=== PATIENT | female | born 1950 | race Caucasian/White ===

== ENCOUNTER 2016-06-06 18:01 | Emergency (ER) | payer MEDICARE, BC ==
--- NOTE | 2016-06-06 18:35 | EDM.PDOC ---
ED HPI GENERAL MEDICAL PROBLEM - General Chief Complaint: General Stated Complaint: Altered mental status Time Seen by Provider: 06/06/16 18:06 Source of Information: Reports: Other ([facility] RN) History Limitations: Reports: Altered mental status (per those familiar with patient) - History of Present Illness INITIAL COMMENTS - FREE TEXT/NARRATIVE: Patient sent here for evaluation after [facility] staff noticed that she had change in level of activity, wasn't acting like usual self, seemed to be slurring words. No focal weakness noted. No fevers or other signs of obvious illness. Recent surgery for right tib/fib fracture. Is at [facility] for rehab. The changes were noted earlier today. It was thought that it was possible side effect of Tramadol and this was medication was then held. No improvement noted. Patient is awake and conversive upon arrival. No obvious focal weakness/ asymmetry. She feels that she is more tired today and has some nausea. Otherwise she has no complaints. Patient could not recall that she was in [place]. She thought she was in [place]. She also thought today was Saturday ( It is Saturday) and she could not recall the month. She denies any increased pain in the area of the right leg that was fractured. She denies any new areas of pain. Said that she had large BM today after having constipation issues. We were told by [facility] staff that patient had not had BM for six days. No emesis. Patient did not appear confused otherwise or inappropriate. - Related Data Allergies Allergy/AdvReac Type Severity Reaction Status Date / Time gluten Allergy Hives Verified 06/06/16 18:39 Penicillins Allergy Hives Verified 06/06/16 18:39 ED ROS GENERAL - Review of Systems Review Of Systems: See Below Constitutional: Reports: no symptoms HEENT: Reports: No symptoms Respiratory: Reports: no symptoms Cardiovascular: Reports: No symptoms GI/Abdominal: Reports: Constipation, Nausea. Denies: Hematemesis, Hematochezia , Vomiting : Reports: no symptoms, other (has had recent UTI per patient) Musculoskeletal: Reports: leg pain (right tib/fib fracture recently. 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 Nothing has improved them over the years. ) Neurological: Reports: confusion, change in speech. Denies: dizziness, headache , numbness, paresthesia, seizure, syncope, tingling, tremors, trouble speaking, weakness Psychiatric: Reports: No symptoms ED EXAM, GENERAL - Physical Exam Exam: See Below Exam Limited By: Other (has limitations in mobility due to the recent leg surgery. Right leg in immobilizer.) General Appearance: alert, no apparent distress Eye Exam: bilateral eye: EOMI, normal inspection, PERRL Ears: normal canal, hearing grossly normal, normal TMs, other (both ears have a small sore, similar in appearance to the sores on her body that have been present for years) Nose: normal inspection Throat/Mouth: Other (Dry lips. Very poor dentition and gum disease. Tongue midline. ) Head: atraumatic, normocephalic, other (Facies symmetric) Neck: normal inspection, supple, non-tender, full range of motion Respiratory/Chest: no respiratory distress, no accessory muscle use, chest non- tender, crackles (faint crackes bases). No: rhonchi, wheezing, stridor Cardiovascular: regular rate, rhythm, no murmur Peripheral Pulses: 2+: radial (L), radial (R) GI/Abdominal: normal bowel sounds, soft, non tender, no distention Back Exam: No: CVA tenderness (L), CVA tenderness (R), muscle spasm, paraspinal tenderness, vertebral tenderness Extremities: other (No obvious edema noted. RIght leg in imobilizer. ) Neurological: alert, CN II-XII intact, normal reflexes, no motor/sensory deficits, other (Patient cannot remember town where she is, nor day/month) Psychiatric: normal affect, normal mood Skin Exam: Warm, Dry, Other (paler skin color. Dark circles around eyes. ) Course - Vital Signs Last Recorded V/S: Last Vital Signs Temp 37.0 C 06/06/16 19:00 Pulse 58 L 06/06/16 19:27 Resp 15 06/06/16 19:27 BP 137/43 L 06/06/16 19:27 Pulse Ox 100 06/06/16 19:27 - Orders/Labs/Meds Orders: Active Orders 24 hr Category Date Time Status Chest 1V Frontal [CR] Stat Exams 06/06/16 18:07 Ordered Head wo Cont [CT] Stat Exams 06/06/16 18:08 Ordered UA W/MICROSCOPIC [URIN] Stat Lab 06/06/16 18:07 Uncollected Labs: Laboratory Tests 06/06/16 06/06/16 06/06/16 Range/Units 18:14 18:14 18:14 WBC 9.3 (4.0-10.2) K/uL RBC 3.37 L (3.77-5.09) M/uL Hgb 8.9 L (11.7-15.5) g/dL Hct 27.6 L (34.0-46.0) % MCV 81.9 L (84.0-98.0) fL MCH 26.4 L (28.2-33.3) pg MCHC 32.2 (31.7-36.0) g/dL RDW 13.0 (11.2-14.1) % Plt Count 536 H (150-350) K/uL Neut % (Auto) 85.9 H (45.0-80.0) % Lymph % (Auto) 7.5 L (10.0-50.0) % [place] % (Auto) 6.0 (2.0-14.0) % Eos % (Auto) 0.2 (0.0-5.0) % Baso % (Auto) 0.4 (0.0-2.0) % Neut # 7.97 H (1.40-7.00) K/uL Lymph # 0.70 (0.50-3.50) K/uL [place] # 0.56 (0.00-1.00) K/uL Eos # 0.02 (0.00-0.50) K/uL Baso # 0.04 (0.00-0.20) K/uL Sodium 125 L (136-145) mmol/L Potassium 4.7 (3.5-5.1) mmol/L Chloride 88 L (98-107) mmol/L Carbon Dioxide 32.7 H (21.0-32.0) mmol/L BUN 24 H (7-18) mg/dL Creatinine 1.19 H (0.51-1.17) mg/dL Est Cr Clr Drug Dosing 49.25 mL/min Estimated GFR (MDRD) 46 mL/min Glucose 251 H* (74-106) mg/dL Lactic Acid 0.7 (0.4-2.0) mmol/L Calcium 8.7 (8.5-10.1) mg/dL Total Bilirubin 0.6 (0.2-1.0) mg/dL AST 22 (15-37) U/L ALT 21 (12-78) U/L Alkaline Phosphatase 172 H (46-116) IU/L Ammonia (11-32) umol/L Troponin I 0.001 (0.000-0.056) ng/mL Total Protein 7.0 (6.4-8.2) g/dL Albumin 3.1 L (3.4-5.0) g/dL 06/06/16 Range/Units 18:14 WBC (4.0-10.2) K/uL RBC (3.77-5.09) M/uL Hgb (11.7-15.5) g/dL Hct (34.0-46.0) % MCV (84.0-98.0) fL MCH (28.2-33.3) pg MCHC (31.7-36.0) g/dL RDW (11.2-14.1) % Plt Count (150-350) K/uL Neut % (Auto) (45.0-80.0) % Lymph % (Auto) (10.0-50.0) % [place] % (Auto) (2.0-14.0) % Eos % (Auto) (0.0-5.0) % Baso % (Auto) (0.0-2.0) % Neut # (1.40-7.00) K/uL Lymph # (0.50-3.50) K/uL [place] # (0.00-1.00) K/uL Eos # (0.00-0.50) K/uL Baso # (0.00-0.20) K/uL Sodium (136-145) mmol/L Potassium (3.5-5.1) mmol/L Chloride (98-107) mmol/L Carbon Dioxide (21.0-32.0) mmol/L BUN (7-18) mg/dL Creatinine (0.51-1.17) mg/dL Est Cr Clr Drug Dosing mL/min Estimated GFR (MDRD) mL/min Glucose (74-106) mg/dL Lactic Acid (0.4-2.0) mmol/L Calcium (8.5-10.1) mg/dL Total Bilirubin (0.2-1.0) mg/dL AST (15-37) U/L ALT (12-78) U/L Alkaline Phosphatase (46-116) IU/L Ammonia 28 (11-32) umol/L Troponin I (0.000-0.056) ng/mL Total Protein (6.4-8.2) g/dL Albumin (3.4-5.0) g/dL Meds: Medications Discontinued Medications Generic Name Dose Route Start Last Admin Trade Name Freq PRN Reason Stop Dose Admin Sodium Chloride 1,000 mls @ 999 mls/hr 06/06/16 18:52 06/06/16 18:57 Normal Saline IV 06/06/16 19:52 999 mls/hr .BOLUS ONE Administration Insulin Human Regular 6 unit 06/07/16 18:58 Humulin R SUBCUT 06/07/16 18:59 ONETIME ONE Protocol Insulin Human Regular 6 unit 06/07/16 20:03 Humulin R SUBCUT 06/07/16 20:04 ONETIME ONE Protocol Ondansetron HCl 4 mg 06/06/16 19:24 06/06/16 20:03 Zofran IVPUSH 06/06/16 19:25 4 mg ONETIME ONE Administration - Radiology Interpretation Free Text/Narrative:: Chest film shows patchy changes right lower lung. Cannot exclude infiltrate. - Re-Assessments/Exams Free Text/Narrative Re-Assessment/Exam: 06/06/16 19:09 Electrolyte imbalance identified. Na of 125. Platelets also concentrated. Suspect dehydration. Patient admits to poor PO fluid intake. IV fluid bolus ordered. CT results still pending at this time. Do not suspect CVA/TIA at this time. Free Text/Narrative Re-Assessment/Exam: 06/06/16 20:00 CT of head showed several concerns. No obvious acute bleed. However 6mm hyperdense area around pituitary noted by Radiology. Differential includes aneurysm as well as tumor. Radiology recommended MRA/MRI. Also noted to have slightly larger ventricles which may indicate mild hydrocephalus. [facility] in [place] was contacted. , Hospitalist, accepted patient in transfer for continued workup. Patient's blood sugar elevated in mid-200s. She declined having us give her insulin in the ER saying that she is extremely brittle and easily crashes and becomes hypoglycemic. Insulin order canceled. Patient transferred by ambulance to [facility]. Stable throughout entire stay in ER. Patient afebrile. Normal WBC. No respiratory complaints. No antibiotics initiated during stay in ER. Free Text/Narrative Re-Assessment/Exam: 06/06/16 20:10 Unable to obtain UA for analysis prior to transfer. Departure - Departure Time of Disposition: 20:09 Disposition: DC/Tfer to [facility] 02 Condition: good Clinical Impression: Hyperglycemia, Hyponatremia, Abnormal CT of brain Forms: ED Department Discharge - My Orders Last 24 Hours: My Active Orders 06/06/16 18:07 Chest 1V Frontal [CR] Stat UA W/MICROSCOPIC [URIN] Stat 06/06/16 18:08 Head wo Cont [CT] Stat - Assessment/Plan Last 24 Hours: My Active Orders 06/06/16 18:07 Chest 1V Frontal [CR] Stat UA W/MICROSCOPIC [URIN] Stat 06/06/16 18:08 Head wo Cont [CT] Stat
[2016-06-06] MEDS ORDERED: Sodium Chloride 0.9% 1,000 ML IV ONE (18:52)
[2016-06-06] MEDS ORDERED: Ondansetron 4 MG/2 ML SDV IVPUSH ONE (19:24)
[2016-06-07 03:27] VITALS: BP 139/41
[2016-06-07] MEDS ORDERED: Insulin Regular, Human 100 Units/ML 3 ML Vial SUBCUT ONE ×2 (18:58→20:03)
== END 2016-06-06 21:10 ==
LOC: LL.ED 18:01
DX: R73.9 Hyperglycemia, unspecified (principal); E87.1 Hypo-osmolality and hyponatremia; R93.0 Abnormal findings on diagnostic imaging of skull and head, not elsewhere classified; Z88.0 Allergy status to penicillin
CPT/HCPCS: 36415; 70450; 71010; 80053; 82140; 83605; 84484; 85025; 96361; 96374; 99285; J2405; J7030; 99284

== ENCOUNTER 2016-06-18 21:09 | Inpatient (IN) | payer MEDICARE, BC ==
[2016-06-18] MEDS ORDERED: Sodium Chloride 0.9% 1,000 ML IV ONE (21:56)
--- NOTE | 2016-06-18 22:16 | EDM.PDOC ---
ED HPI GENERAL MEDICAL PROBLEM - General Chief Complaint: General Stated Complaint: fever Time Seen by Provider: 06/18/16 21:15 Source of Information: Reports: Patient, assisted records History Limitations: Reports: No limitations - History of Present Illness INITIAL COMMENTS - FREE TEXT/NARRATIVE: Feeling sick today. Noted to have a 100.3 fever at [place]. Mild cough. No specific c/o Onset: today Location: Reports: generalized Quality: Reports: Other (no specific pain) Improves with: Reports: None Worsens with: Reports: None Associated Symptoms: Reports: cough, fever/chills (by report of NH), malaise. Denies: chest pain, cough w sputum, diaphoresis, nausea/vomiting, rash, shortness of breath Right Leg Pain Score (Numeric/FACES): 3 - Related Data Allergies Allergy/AdvReac Type Severity Reaction Status Date / Time gluten Allergy Hives Verified 06/06/16 18:39 Penicillins Allergy Hives Verified 06/18/16 21:16 Home Meds: Home Meds Acetaminophen [Tylenol] 650 mg PO Q4HR PRN 06/07/16 [History] Amiodarone HCl [Pacerone] 200 mg PO DAILY 06/07/16 [History] Aspirin [Halfprin] 81 mg PO BRK 06/07/16 [History] Bisacodyl 10 mg RC DAILY PRN 06/07/16 [History] Calcium Carbonate/Vitamin D3 [Calcium 600 + Vit D 400 Softgl] 1 tab PO BID 06/07 [History] Carboxymethylcellulose Sodium [Refresh Tears] 1 drop EYEBOTH Q6HR PRN 06/07/16 [ History] DULoxetine HCl [Cymbalta] 60 mg PO BEDTIME 06/07/16 [History] Gabapentin [Neurontin] 300 mg PO BEDTIME 06/07/16 [History] Hydrochlorothiazide 12.5 mg PO DAILY 06/07/16 [History] Insulin Aspart [NovoLOG] 4 units SQ TIDAC 06/07/16 [History] Insulin Glarg,Human.Rec.Analog [Lantus] 8 units SQ BID 06/07/16 [History] Lactulose 30 ml PO Q8HR PRN 06/07/16 [History] Levothyroxine Sodium [Levoxyl] 50 mcg PO DAILY 06/07/16 [History] Liothyronine Sodium 1 tab PO DAILY 06/07/16 [History] Losartan Potassium 2 tab PO DAILY 06/07/16 [History] Melatonin 3 mg PO BEDTIME 06/07/16 [History] Metoprolol Tartrate 12.5 mg PO BID 06/07/16 [History] Multivit-Min/Iron Fum/Folic AC [Adeus-Cyfqdqk-Clrjpzip Tablet] 1 tab PO DAILY [History] Nitroglycerin [Nitrostat] 1 tab SL ASDIRECTED PRN 06/07/16 [History] Non-Formulary Medication [NF Drug] 50 mg PO DAILY 06/07/16 [History] Progesterone,Micronized [Prometrium] 3 cap PO BEDTIME 06/07/16 [History] Sennosides/Docusate Sodium [Senna S Tablet] 2 tab PO BID 06/07/16 [History] Sodium Chloride [Saline Nasal [place]] 2 spray DARNELL BEDTIME 06/07/16 [History] atorvaSTATin Calcium [Atorvastatin Calcium] 10 mg PO QPM 06/07/16 [History] Social & Family History - Family History Family Medical History: Noncontributory - Tobacco Use Smoking Status *Q: Never Smoker Second Hand Smoke Exposure: No - Caffeine Use Caffeine Use: Reports: None - Recreational Drug Use Recreational Drug Use: No ED ROS GENERAL - Review of Systems Review Of Systems: See Below Constitutional: Reports: fever, malaise. Denies: chills, diaphoresis HEENT: Reports: No symptoms Respiratory: Reports: No Symptoms Cardiovascular: Reports: No symptoms Endocrine: Reports: no symptoms GI/Abdominal: Reports: No symptoms : Reports: no symptoms Musculoskeletal: Reports: no symptoms, other (except right leg pain since recent fracture) Skin: Reports: no symptoms Neurological: Reports: No Symptoms Psychiatric: Reports: No symptoms Hematologic/Lymphatic: Reports: no symptoms Immunologic: Reports: no symptoms ED EXAM, GENERAL - Physical Exam Exam: See Below Exam Limited By: No limitations General Appearance: alert, WD/WN, no apparent distress Eye Exam: bilateral eye: EOMI, PERRL Ears: normal external exam, normal canal, hearing grossly normal, normal TMs Nose: normal inspection, normal mucosa, no blood Throat/Mouth: Normal inspection, Normal oropharynx, No airway compromise, Other (gum hypertrophy) Head: atraumatic, normocephalic Neck: normal inspection, supple, non-tender, full range of motion, other ( fullness of right sternomastoid muscle). No: lymphadenopathy (L), lymphadenopathy (R) Respiratory/Chest: no respiratory distress, lungs clear, normal breath sounds, no accessory muscle use Cardiovascular: regular rate, rhythm, no murmur GI/Abdominal: normal bowel sounds, soft, non tender, no organomegaly, no distention Back Exam: normal inspection, full range of motion Extremities: normal inspection, normal range of motion, non-tender, no pedal edema, normal capillary refill Neurological: alert, oriented, CN II-XII intact, normal gait, no motor/sensory deficits, other (questionable memory) Psychiatric: normal affect, normal mood Skin Exam: Warm, Dry, Intact, No rash, Pallor Lymphatic: no adenopathy Course - Vital Signs Last Recorded V/S: Last Vital Signs Temp 38.1 C 06/18/16 21:10 Pulse 74 06/18/16 21:10 Resp 18 06/18/16 21:10 BP 108/40 L 06/18/16 21:10 Pulse Ox 98 06/18/16 21:10 - Orders/Labs/Meds Orders: Active Orders 24 hr Category Date Time Status Chest 1V Frontal [CR] Stat Exams 06/18/16 21:56 Taken UA W/MICROSCOPIC [URIN] Stat Lab 06/18/16 21:56 Ordered Levofloxacin/Dextrose 5%-Water [Levaquin in D5W 500 MG/ Med 06/18/16 23:15 Ordered 100 ML] 500 mg Premix Bag 1 bag IV Q24H Sodium Chloride 0.9% [Normal Saline] 1,000 ml Med 06/18/16 21:56 Active IV .BOLUS Medication Orders Sodium Chloride (Normal Saline) 1,000 mls @ 500 mls/hr IV .BOLUS ONE Stop: 06/18/16 23:55 Last Admin: 06/18/16 22:50 Dose: 500 mls/hr Labs: Laboratory Tests 06/18/16 06/18/16 Range/Units 22:10 22:10 WBC 15.0 H (4.0-10.2) K/uL RBC 2.93 L (3.77-5.09) M/uL Hgb 7.7 L (11.7-15.5) g/dL Hct 24.4 L* (34.0-46.0) % MCV 83.3 L (84.0-98.0) fL MCH 26.3 L (28.2-33.3) pg MCHC 31.6 L (31.7-36.0) g/dL RDW 13.8 (11.2-14.1) % Plt Count 417 H D (150-350) K/uL Neut % (Auto) 88.5 H (45.0-80.0) % Lymph % (Auto) 5.4 L (10.0-50.0) % [place] % (Auto) 2.7 (2.0-14.0) % Eos % (Auto) 2.7 (0.0-5.0) % Baso % (Auto) 0.7 (0.0-2.0) % Neut # 13.30 H (1.40-7.00) K/uL Lymph # 0.81 (0.50-3.50) K/uL [place] # 0.41 (0.00-1.00) K/uL Eos # 0.40 (0.00-0.50) K/uL Baso # 0.11 (0.00-0.20) K/uL Sodium 128 L (136-145) mmol/L Potassium 4.8 (3.5-5.1) mmol/L Chloride 93 L (98-107) mmol/L Carbon Dioxide 27.7 (21.0-32.0) mmol/L BUN 36 H (7-18) mg/dL Creatinine 1.28 H (0.51-1.17) mg/dL Est Cr Clr Drug Dosing 45.15 mL/min Estimated GFR (MDRD) 42 mL/min Glucose 243 H (74-106) mg/dL Calcium 8.4 L (8.5-10.1) mg/dL Total Bilirubin 0.5 (0.2-1.0) mg/dL AST 155 H (15-37) U/L ALT 110 H (12-78) U/L Alkaline Phosphatase 211 H (46-116) IU/L Total Protein 6.6 (6.4-8.2) g/dL Albumin 2.9 L (3.4-5.0) g/dL Meds: Medications Generic Name Dose Route Start Last Admin Trade Name Freq PRN Reason Stop Dose Admin Sodium Chloride 1,000 mls @ 500 mls/hr 06/18/16 21:56 06/18/16 22:50 Normal Saline IV 06/18/16 23:55 500 mls/hr .BOLUS ONE Administration Departure - Departure Time of Disposition: 23:06 Disposition: Admitted As Inpatient 66 Condition: fair Clinical Impression: UTI (urinary tract infection) Qualifiers: Urinary tract infection type: acute cystitis Hematuria presence: without hematuria Qualified Code(s): N30.00 - Acute cystitis without hematuria Altered mental status Qualifiers: Altered mental status type: unspecified Qualified Code(s): R41.82 - Altered mental status, unspecified Forms: ED Department Discharge - My Orders Last 24 Hours: My Active Orders 06/18/16 21:56 Chest 1V Frontal [CR] Stat UA W/MICROSCOPIC [URIN] Stat Sodium Chloride 0.9% [Normal Saline] 1,000 ml IV .BOLUS 06/18/16 23:15 Levofloxacin/Dextrose 5%-Water [Levaquin in D5W 500 MG/100 ML] 500 mg Premix Bag 1 bag IV Q24H - Assessment/Plan Last 24 Hours: My Active Orders 06/18/16 21:56 Chest 1V Frontal [CR] Stat UA W/MICROSCOPIC [URIN] Stat Sodium Chloride 0.9% [Normal Saline] 1,000 ml IV .BOLUS 06/18/16 23:15 Levofloxacin/Dextrose 5%-Water [Levaquin in D5W 500 MG/100 ML] 500 mg Premix Bag 1 bag IV Q24H
[2016-06-19] MEDS ORDERED: Acetaminophen 325 MG Tab PO PRN (00:08)
[2016-06-19] MEDS ORDERED: Polyvinyl Alcohol 1.4% Ophth Soln 15 ML Bottle EYEBOTH PRN (00:08)
[2016-06-19] MEDS: Levofloxacin/Dextrose 5%-Water 500 MG in Premix Bag 1 BAG IV SCH ×2 (00:59→22:17)
[2016-06-19] MEDS: Sodium Chloride 0.9% 1,000 ML IV SCH ×2 (02:09→22:16)
[2016-06-19] MEDS ORDERED: Calcium Carbonate/Vitamin D3 625 MG-125 Unit Tab PO SCH (08:00)
[2016-06-19] MEDS ORDERED: Nitroglycerin 0.4 MG Tab.SL SL PRN (09:27)
[2016-06-19] MEDS ORDERED: Bisacodyl 10 MG Supp RECTAL PRN (09:27)
[2016-06-19] MEDS ORDERED: Cholecalciferol (Vitamin D3) 1,000 Unit Tab PO SCH (09:30)
[2016-06-19] MEDS: Multivitamin Tab PO SCH (11:00)
[2016-06-19] MEDS: Levothyroxine 50 MCG Tab PO SCH (11:00)
[2016-06-19] MEDS: Metoprolol Tartrate 25 MG Tab PO SCH ×2 (11:00→18:16)
[2016-06-19] MEDS: Amiodarone 200 MG Tab PO SCH (11:00)
[2016-06-19] MEDS: Losartan 50 MG Tab PO SCH (11:01)
[2016-06-19] MEDS: Insulin Detemir 100 Units/ML 3 ML Pen SUBCUT SCH ×2 (11:01→20:52)
[2016-06-19] MEDS: traMADol 50 MG Tab PO SCH ×2 (11:38→20:51)
[2016-06-19] MEDS: Insulin Aspart 100 Units/ML 3 ML Pen SUBCUT SCH ×2 (11:38→18:17)
[2016-06-19] MEDS ORDERED: atorvaSTATin 10 MG Tab PO SCH (18:00)
[2016-06-19] MEDS: PROGESTERONE MICRONIZED 100 MG PO SCH (20:49)
[2016-06-19] MEDS: DULoxetine 30 MG Cap PO SCH (20:50)
[2016-06-19] MEDS: Sodium Chloride 0.65% Nasal Spray 45 ML Bottle NASBOTH SCH (20:51)
[2016-06-19] MEDS: Gabapentin 300 MG Cap PO SCH (20:51)
--- NOTE | 2016-06-19 22:07 | PCM.PN ---
- General Info Date of Service: 06/19/16 Functional Status: Reports: tolerating diet - Review of Systems General: Reports: Fever, Weakness, Fatigue HEENT: Reports: no symptoms Pulmonary: Reports: no symptoms Cardiovascular: Reports: No Symptoms Gastrointestinal: Reports: No symptoms Genitourinary: Reports: no symptoms Musculoskeletal: Reports: leg pain Skin: Reports: no symptoms Neurological: Reports: Confusion, Weakness Psychiatric: Reports: confusion - Patient Data Vitals - most recent: Last Vital Signs Temp 98.8 F 06/19/16 21:00 Pulse 54 L 06/19/16 21:00 Resp 18 06/19/16 21:00 BP 139/62 06/19/16 21:00 Pulse Ox 98 06/19/16 20:00 Weight - most recent: 158 lb 0.014 oz I&O - last 24 hours: Intake & Output 06/19/16 06/19/16 06/19/16 06:59 14:59 22:59 Intake Total 2500 400 640 Output Total 1000 1200 500 Balance 1500 -800 140 Lab Results last 24 hrs: Laboratory Results - last 24 hr 06/19/16 06/19/16 06/19/16 Range/Units 07:06 07:06 07:06 WBC 12.8 H (4.0-10.2) K/uL RBC 2.56 L (3.77-5.09) M/uL Hgb 6.8 L* (11.7-15.5) g/dL Hct 21.5 L* (34.0-46.0) % MCV 84.0 (84.0-98.0) fL MCH 26.6 L (28.2-33.3) pg MCHC 31.6 L (31.7-36.0) g/dL RDW 13.6 (11.2-14.1) % Plt Count 351 H (150-350) K/uL Neut % (Auto) 86.0 H (45.0-80.0) % Lymph % (Auto) 3.8 L (10.0-50.0) % [place] % (Auto) 5.7 (2.0-14.0) % Eos % (Auto) 4.1 (0.0-5.0) % Baso % (Auto) 0.4 (0.0-2.0) % Neut # 10.97 H (1.40-7.00) K/uL Lymph # 0.49 L (0.50-3.50) K/uL [place] # 0.73 (0.00-1.00) K/uL Eos # 0.52 H (0.00-0.50) K/uL Baso # 0.05 (0.00-0.20) K/uL POC Glucose (65-110) mg/dl Iron 10 L (50-175) ug/dL TIBC 206 L (250-450) ug/dL % Saturation 4.23832 Ferritin 146 (8-388) ng/mL Blood Type O POSITIVE Gel Antibody Screen Negative Crossmatch See Detail 06/19/16 06/19/16 06/19/16 Range/Units 08:04 11:38 18:19 WBC (4.0-10.2) K/uL RBC (3.77-5.09) M/uL Hgb (11.7-15.5) g/dL Hct (34.0-46.0) % MCV (84.0-98.0) fL MCH (28.2-33.3) pg MCHC (31.7-36.0) g/dL RDW (11.2-14.1) % Plt Count (150-350) K/uL Neut % (Auto) (45.0-80.0) % Lymph % (Auto) (10.0-50.0) % [place] % (Auto) (2.0-14.0) % Eos % (Auto) (0.0-5.0) % Baso % (Auto) (0.0-2.0) % Neut # (1.40-7.00) K/uL Lymph # (0.50-3.50) K/uL [place] # (0.00-1.00) K/uL Eos # (0.00-0.50) K/uL Baso # (0.00-0.20) K/uL POC Glucose 293 H* 328 H* 266 H* (65-110) mg/dl Iron (50-175) ug/dL TIBC (250-450) ug/dL % Saturation Ferritin (8-388) ng/mL Blood Type Gel Antibody Screen Crossmatch Med Orders - Current: Current Medications Acetaminophen (Tylenol) 650 mg PO Q4HR PRN PRN Reason: Pain Last Admin: 06/19/16 10:08 Dose: 650 mg Amiodarone HCl (Cordarone) 200 mg PO DAILY [facility] Last Admin: 06/19/16 11:00 Dose: 200 mg Artificial Tears (Liquitears 1.4% Ophth Soln) 0 ml EYEBOTH Q6HR PRN PRN Reason: Dry Eyes Bisacodyl (Dulcolax) 10 mg RECTAL DAILY PRN PRN Reason: Constipation Duloxetine HCl (Cymbalta) 60 mg PO BEDTIME [facility] Last Admin: 06/19/16 20:50 Dose: 60 mg Gabapentin (Neurontin) 300 mg PO BEDTIME [facility] Last Admin: 06/19/16 20:51 Dose: 300 mg Levofloxacin/Dextrose 500 mg/ (Premix) 100 mls @ 100 mls/hr IV Q24H [facility] Last Admin: 06/19/16 00:59 Dose: 100 mls/hr Sodium Chloride (Normal Saline) 1,000 mls @ 75 mls/hr IV ASDIRECTED [facility] Last Admin: 06/19/16 02:09 Dose: 75 mls/hr Insulin Aspart (Novolog) 4 unit SUBCUT TIDAC [facility] Last Admin: 06/19/16 18:17 Dose: 4 unit Insulin Detemir (Levemir) 7 unit SUBCUT BID@0800,2000 [facility] Last Admin: 06/19/16 20:52 Dose: 7 unit Lactulose (Cephulac) 20 gm PO Q8HR PRN PRN Reason: Constipation Levothyroxine Sodium (Synthroid) 50 mcg PO DAILY [facility] Last Admin: 06/19/16 11:00 Dose: 50 mcg Losartan Potassium (Cozaar) 50 mg PO DAILY [facility] Last Admin: 06/19/16 11:01 Dose: 50 mg Melatonin (Melatonin) 3 mg PO BEDTIME [facility] Metoprolol Tartrate (Lopressor) 12.5 mg PO BID [facility] Last Admin: 06/19/16 18:16 Dose: 12.5 mg Multivitamins/Minerals/Vitamin C (Tab-A-Lilo) 1 tab PO DAILY [facility] Last Admin: 06/19/16 11:00 Dose: 1 tab Nitroglycerin (Nitrostat) 0.4 mg SL ASDIRECTED PRN PRN Reason: Chest Pain Liothyronine Sodium (5mcg Tablet) 1 tab PO DAILY [facility] Last Admin: 06/19/16 13:00 Dose: 1 tab Progesterone, Micronized 100mg Capsules 3 cap PO BEDTIME [facility] Last Admin: 06/19/16 20:49 Dose: 3 cap Senna/Docusate Sodium (Senna Plus) 2 tab PO BID [facility] Last Admin: 06/19/16 18:16 Dose: 2 tab Sodium Chloride ([place] Nasal [place]) 0 ml NASBOTH BEDTIME [facility] Last Admin: 06/19/16 20:51 Dose: 2 spray Tramadol HCl (Ultram) 50 mg PO BID@0800,2000 [facility] Last Admin: 06/19/16 20:51 Dose: 50 mg Discontinued Medications Atorvastatin Calcium (Lipitor) 10 mg PO QPM [facility] Calcium Carbonate (Oystcal-D 625 Mg-125 Units) 1 tab PO BID [facility] Last Admin: 06/19/16 07:17 Dose: 1 tab Cholecalciferol (Vitamin D3) 2,000 units PO DAILY [facility] Last Admin: 06/19/16 11:00 Dose: 2,000 units Sodium Chloride (Normal Saline) 1,000 mls @ 500 mls/hr IV .BOLUS ONE Stop: 06/18/16 23:55 Last Admin: 06/18/16 22:50 Dose: 500 mls/hr - Exam General: alert, cooperative, mild distress HEENT: Mucous membr. moist/pink Neck: trachea midline, no JVD Lungs: Normal respiratory effort Cardiovascular: Regular Rate, Regular Rhythm Abdomen: bowel sounds present, soft, no tenderness, no distension (Female) Exam: Deferred Back Exam: normal inspection Extremities: edema Skin: warm, dry, intact Neurological: no new focal deficit Psy/Mental Status: alert, anxious - Problem List & Annotations (1) Diabetes SNOMED Code(s): 24897013 Code(s): E11.9 - TYPE 2 DIABETES MELLITUS WITHOUT COMPLICATIONS Status: Acute Priority: High Current Visit: Yes Qualifiers: Diabetes mellitus type: type 2 Diabetes mellitus complication status: without complication (2) Altered mental status SNOMED Code(s): 978989067 Code(s): R41.82 - ALTERED MENTAL STATUS, UNSPECIFIED Status: Acute Current Visit: Yes Qualifiers: Altered mental status type: unspecified Qualified Code(s): R41.82 - Altered mental status, unspecified (3) UTI (urinary tract infection) SNOMED Code(s): 87567625 Code(s): N39.0 - URINARY TRACT INFECTION, SITE NOT SPECIFIED Status: Acute Current Visit: Yes Qualifiers: Urinary tract infection type: acute cystitis Hematuria presence: without hematuria Qualified Code(s): N30.00 - Acute cystitis without hematuria (4) Abnormal CT of brain SNOMED Code(s): 190552314 Code(s): R90.89 - OTH ABNORMAL FINDINGS ON DIAGNOSTIC IMAGING OF CNSL Status: Acute Current Visit: No (5) Hyponatremia SNOMED Code(s): 79096281 Code(s): E87.1 - HYPO-OSMOLALITY AND HYPONATREMIA Status: Acute Priority : High Current Visit: Yes - Problem List Review Problem List Initiated/Reviewed/Updated: Yes - My Orders Last 24 Hours: My Active Orders 06/19/16 20:00 CMP [COMPREHENSIVE METABOLIC PN,CMP] [CHEM] Routine CRP [C-REACTIVE PROTEIN] [CHEM] Routine 06/20/16 05:11 AMIODARONE & METABOLITE [REF] Routine CBC WITH AUTO DIFF [HEME] DAILY CMP [COMPREHENSIVE METABOLIC PN,CMP] [CHEM] DAILY CRP [C-REACTIVE PROTEIN] [CHEM] DAILY FOLATE [REF] Routine OSMOLALITY - SERUM [REF] Routine OSMOLALITY - URINE Routine TSH ULTRASENSITIVE [CHEM] Routine VIT D, 25 HYDROXY [REF] Routine VITAMIN B12 [CHEM] Routine 06/21/16 05:11 CBC WITH AUTO DIFF [HEME] DAILY CMP [COMPREHENSIVE METABOLIC PN,CMP] [CHEM] DAILY CRP [C-REACTIVE PROTEIN] [CHEM] DAILY 06/22/16 05:11 CBC WITH AUTO DIFF [HEME] DAILY CMP [COMPREHENSIVE METABOLIC PN,CMP] [CHEM] DAILY CRP [C-REACTIVE PROTEIN] [CHEM] DAILY - Plan Plan:: 06/19/16 Concetta Torre MD Feeling very tired but a little better. Still weak. Still some confusion.
[2016-06-19] MEDS: Melatonin 3 MG Tab PO SCH (22:12)
[2016-06-19 22:49] LABS: CHLORIDE,CL 98 mmol/L (98-107); SODIUM,NA 133 mmol/L (136-145)
[2016-06-20 07:43] LABS: CHLORIDE,CL 99 mmol/L (98-107); SODIUM,NA 133 mmol/L (136-145)
[2016-06-20] MEDS: Multivitamin Tab PO SCH (07:54)
[2016-06-20] MEDS: traMADol 50 MG Tab PO SCH ×2 (07:54→19:08)
[2016-06-20] MEDS: Levothyroxine 50 MCG Tab PO SCH (07:54)
[2016-06-20] MEDS: Metoprolol Tartrate 25 MG Tab PO SCH ×2 (07:54→17:34)
[2016-06-20] MEDS: Amiodarone 200 MG Tab PO SCH (07:55)
[2016-06-20] MEDS: Insulin Aspart 100 Units/ML 3 ML Pen SUBCUT SCH ×3 (07:55→17:34)
[2016-06-20] MEDS: Losartan 50 MG Tab PO SCH (07:55)
[2016-06-20] MEDS: Insulin Detemir 100 Units/ML 3 ML Pen SUBCUT SCH ×2 (07:56→19:13)
[2016-06-20 10:10] LABS: O2 DELIVERY DEVICE ROOM AIR; O2 FLOW RATE 0 L/min
[2016-06-20 10:19] LABS: BASE EXCESS VENOUS 2 mmol/L ((-2)-3); BICARBONATE,VENOUS 28 mmol/L (23-28); O2 SATURATION VENOUS 48 %; PCO2 VENOUS 53 mmHG (41-51); PH,VENOUS 7.33 (7.31-7.41); PO2 VENOUS 29 mmHG
--- NOTE | 2016-06-20 17:20 | PCM.PN ---
- General Info Date of Service: 06/20/16 Functional Status: Reports: pain controlled - Review of Systems General: Reports: No Symptoms HEENT: Reports: no symptoms Pulmonary: Reports: other (rib pain) Cardiovascular: Reports: No Symptoms Gastrointestinal: Reports: No symptoms Genitourinary: Reports: no symptoms Musculoskeletal: Reports: no symptoms Skin: Reports: no symptoms Neurological: Reports: Confusion Psychiatric: Reports: confusion - Patient Data Vitals - most recent: Last Vital Signs Temp 98.7 F 06/20/16 15:59 Pulse 60 06/20/16 15:59 Resp 16 06/20/16 15:59 BP 124/59 L 06/20/16 15:59 Pulse Ox 98 06/20/16 15:59 Weight - most recent: 158 lb 0.014 oz I&O - last 24 hours: Intake & Output 06/20/16 06/20/16 06/20/16 06:59 14:59 22:59 Intake Total 1037 240 Output Total 300 Balance 737 240 Lab Results last 24 hrs: Laboratory Results - last 24 hr 06/19/16 06/19/16 06/19/16 Range/Units 07:06 07:08 18:19 WBC (4.0-10.2) K/uL RBC (3.77-5.09) M/uL Hgb (11.7-15.5) g/dL Hct (34.0-46.0) % MCV (84.0-98.0) fL MCH (28.2-33.3) pg MCHC (31.7-36.0) g/dL RDW (11.2-14.1) % Plt Count (150-350) K/uL Neut % (Auto) (45.0-80.0) % Lymph % (Auto) (10.0-50.0) % [place] % (Auto) (2.0-14.0) % Eos % (Auto) (0.0-5.0) % Baso % (Auto) (0.0-2.0) % Neut # (1.40-7.00) K/uL Lymph # (0.50-3.50) K/uL [place] # (0.00-1.00) K/uL Eos # (0.00-0.50) K/uL Baso # (0.00-0.20) K/uL VBG pH (7.31-7.41) VBG pCO2 (41-51) mmHG VBG pO2 mmHG VBG HCO3 (23-28) mmol/L VBG Total CO2 mmol/L VBG O2 Saturation % VBG Base Excess ((-2)-3) mmol/L O2 Delivery Device Oxygen Flow Rate L/min Sodium (136-145) mmol/L Potassium (3.5-5.1) mmol/L Chloride (98-107) mmol/L Carbon Dioxide (21.0-32.0) mmol/L BUN (7-18) mg/dL Creatinine (0.51-1.17) mg/dL Est Cr Clr Drug Dosing mL/min Estimated GFR (MDRD) mL/min Glucose (74-106) mg/dL POC Glucose 266 H* (65-110) mg/dl Calcium (8.5-10.1) mg/dL Total Bilirubin (0.2-1.0) mg/dL AST (15-37) U/L ALT (12-78) U/L Alkaline Phosphatase (46-116) IU/L Ammonia (11-32) umol/L C-Reactive Protein (<=0.9) mg/dL Total Protein (6.4-8.2) g/dL Albumin (3.4-5.0) g/dL Vitamin B12 482 (193-986) pg/mL Folate 21.1 (8.6-58.9) ng/mL TSH, Ultra Sensitive (0.358-3.740) mIU/mL Blood Type O POSITIVE Gel Antibody Screen Negative Crossmatch See Detail 06/19/16 06/19/16 06/20/16 Range/Units 22:30 22:30 06:25 WBC 9.3 (4.0-10.2) K/uL RBC 4.00 (3.77-5.09) M/uL Hgb 10.8 L D (11.7-15.5) g/dL Hct 33.8 L (34.0-46.0) % MCV 84.5 (84.0-98.0) fL MCH 27.0 L (28.2-33.3) pg MCHC 32.0 (31.7-36.0) g/dL RDW 14.0 (11.2-14.1) % Plt Count 379 H (150-350) K/uL Neut % (Auto) 79.5 (45.0-80.0) % Lymph % (Auto) 7.3 L (10.0-50.0) % [place] % (Auto) 7.3 (2.0-14.0) % Eos % (Auto) 5.1 H (0.0-5.0) % Baso % (Auto) 0.8 (0.0-2.0) % Neut # 7.38 H (1.40-7.00) K/uL Lymph # 0.68 (0.50-3.50) K/uL [place] # 0.68 (0.00-1.00) K/uL Eos # 0.47 (0.00-0.50) K/uL Baso # 0.07 (0.00-0.20) K/uL VBG pH (7.31-7.41) VBG pCO2 (41-51) mmHG VBG pO2 mmHG VBG HCO3 (23-28) mmol/L VBG Total CO2 mmol/L VBG O2 Saturation % VBG Base Excess ((-2)-3) mmol/L O2 Delivery Device Oxygen Flow Rate L/min Sodium 133 L 133 L (136-145) mmol/L Potassium 4.4 4.2 (3.5-5.1) mmol/L Chloride 98 99 (98-107) mmol/L Carbon Dioxide 28.5 27.5 (21.0-32.0) mmol/L BUN 26 H 22 H (7-18) mg/dL Creatinine 0.90 0.81 (0.51-1.17) mg/dL Est Cr Clr Drug Dosing 68.47 76.07 mL/min Estimated GFR (MDRD) > 60 > 60 mL/min Glucose 305 H* 217 H (74-106) mg/dL POC Glucose (65-110) mg/dl Calcium 8.4 L 8.4 L (8.5-10.1) mg/dL Total Bilirubin 1.1 H 1.0 (0.2-1.0) mg/dL AST 99 H 75 H (15-37) U/L ALT 107 H 98 H (12-78) U/L Alkaline Phosphatase 236 H 238 H (46-116) IU/L Ammonia (11-32) umol/L C-Reactive Protein 11.9 H 11.2 H (<=0.9) mg/dL Total Protein 6.1 L 6.1 L (6.4-8.2) g/dL Albumin 2.5 L 2.4 L (3.4-5.0) g/dL Vitamin B12 (193-986) pg/mL Folate (8.6-58.9) ng/mL TSH, Ultra Sensitive 10.774 H (0.358-3.740) mIU/mL Blood Type Gel Antibody Screen Crossmatch 06/20/16 06/20/16 06/20/16 Range/Units 06:25 07:29 10:09 WBC 9.6 (4.0-10.2) K/uL RBC 3.90 (3.77-5.09) M/uL Hgb 10.7 L (11.7-15.5) g/dL Hct 33.0 L (34.0-46.0) % MCV 84.6 (84.0-98.0) fL MCH 27.4 L (28.2-33.3) pg MCHC 32.4 (31.7-36.0) g/dL RDW 13.7 (11.2-14.1) % Plt Count 405 H (150-350) K/uL Neut % (Auto) 77.5 (45.0-80.0) % Lymph % (Auto) 8.1 L (10.0-50.0) % [place] % (Auto) 7.9 (2.0-14.0) % Eos % (Auto) 6.0 H (0.0-5.0) % Baso % (Auto) 0.5 (0.0-2.0) % Neut # 7.41 H (1.40-7.00) K/uL Lymph # 0.77 (0.50-3.50) K/uL [place] # 0.75 (0.00-1.00) K/uL Eos # 0.57 H (0.00-0.50) K/uL Baso # 0.05 (0.00-0.20) K/uL VBG pH (7.31-7.41) VBG pCO2 (41-51) mmHG VBG pO2 mmHG VBG HCO3 (23-28) mmol/L VBG Total CO2 mmol/L VBG O2 Saturation % VBG Base Excess ((-2)-3) mmol/L O2 Delivery Device Oxygen Flow Rate L/min Sodium (136-145) mmol/L Potassium (3.5-5.1) mmol/L Chloride (98-107) mmol/L Carbon Dioxide (21.0-32.0) mmol/L BUN (7-18) mg/dL Creatinine (0.51-1.17) mg/dL Est Cr Clr Drug Dosing mL/min Estimated GFR (MDRD) mL/min Glucose (74-106) mg/dL POC Glucose 181 H (65-110) mg/dl Calcium (8.5-10.1) mg/dL Total Bilirubin (0.2-1.0) mg/dL AST (15-37) U/L ALT (12-78) U/L Alkaline Phosphatase (46-116) IU/L Ammonia 25 (11-32) umol/L C-Reactive Protein (<=0.9) mg/dL Total Protein (6.4-8.2) g/dL Albumin (3.4-5.0) g/dL Vitamin B12 (193-986) pg/mL Folate (8.6-58.9) ng/mL TSH, Ultra Sensitive (0.358-3.740) mIU/mL Blood Type Gel Antibody Screen Crossmatch 06/20/16 06/20/16 Range/Units 10:09 11:59 WBC (4.0-10.2) K/uL RBC (3.77-5.09) M/uL Hgb (11.7-15.5) g/dL Hct (34.0-46.0) % MCV (84.0-98.0) fL MCH (28.2-33.3) pg MCHC (31.7-36.0) g/dL RDW (11.2-14.1) % Plt Count (150-350) K/uL Neut % (Auto) (45.0-80.0) % Lymph % (Auto) (10.0-50.0) % [place] % (Auto) (2.0-14.0) % Eos % (Auto) (0.0-5.0) % Baso % (Auto) (0.0-2.0) % Neut # (1.40-7.00) K/uL Lymph # (0.50-3.50) K/uL [place] # (0.00-1.00) K/uL Eos # (0.00-0.50) K/uL Baso # (0.00-0.20) K/uL VBG pH 7.33 (7.31-7.41) VBG pCO2 53 H (41-51) mmHG VBG pO2 29 mmHG VBG HCO3 28 (23-28) mmol/L VBG Total CO2 29 mmol/L VBG O2 Saturation 48 % VBG Base Excess 2 ((-2)-3) mmol/L O2 Delivery Device Room air Oxygen Flow Rate 0 L/min Sodium (136-145) mmol/L Potassium (3.5-5.1) mmol/L Chloride (98-107) mmol/L Carbon Dioxide (21.0-32.0) mmol/L BUN (7-18) mg/dL Creatinine (0.51-1.17) mg/dL Est Cr Clr Drug Dosing mL/min Estimated GFR (MDRD) mL/min Glucose (74-106) mg/dL POC Glucose 169 H (65-110) mg/dl Calcium (8.5-10.1) mg/dL Total Bilirubin (0.2-1.0) mg/dL AST (15-37) U/L ALT (12-78) U/L Alkaline Phosphatase (46-116) IU/L Ammonia (11-32) umol/L C-Reactive Protein (<=0.9) mg/dL Total Protein (6.4-8.2) g/dL Albumin (3.4-5.0) g/dL Vitamin B12 (193-986) pg/mL Folate (8.6-58.9) ng/mL TSH, Ultra Sensitive (0.358-3.740) mIU/mL Blood Type Gel Antibody Screen Crossmatch Med Orders - Current: Current Medications Acetaminophen (Tylenol) 650 mg PO Q4HR PRN PRN Reason: Pain Last Admin: 06/19/16 10:08 Dose: 650 mg Amiodarone HCl (Cordarone) 200 mg PO DAILY [facility] Last Admin: 06/20/16 07:55 Dose: 200 mg Artificial Tears (Liquitears 1.4% Ophth Soln) 0 ml EYEBOTH Q6HR PRN PRN Reason: Dry Eyes Bisacodyl (Dulcolax) 10 mg RECTAL DAILY PRN PRN Reason: Constipation Duloxetine HCl (Cymbalta) 60 mg PO BEDTIME [facility] Last Admin: 06/19/16 20:50 Dose: 60 mg Gabapentin (Neurontin) 300 mg PO BEDTIME [facility] Last Admin: 06/19/16 20:51 Dose: 300 mg Levofloxacin/Dextrose 500 mg/ (Premix) 100 mls @ 100 mls/hr IV Q24H [facility] Last Admin: 06/19/16 22:17 Dose: 100 mls/hr Insulin Aspart (Novolog) 4 unit SUBCUT TIDAC [facility] Last Admin: 06/20/16 12:00 Dose: 4 unit Insulin Detemir (Levemir) 7 unit SUBCUT BID@0800,2000 [facility] Last Admin: 06/20/16 07:56 Dose: 7 unit Lactulose (Cephulac) 20 gm PO Q8HR PRN PRN Reason: Constipation Levothyroxine Sodium (Synthroid) 50 mcg PO DAILY [facility] Last Admin: 06/20/16 07:54 Dose: 50 mcg Losartan Potassium (Cozaar) 50 mg PO DAILY [facility] Last Admin: 06/20/16 07:55 Dose: 50 mg Melatonin (Melatonin) 3 mg PO BEDTIME [facility] Last Admin: 06/19/16 22:12 Dose: 3 mg Metoprolol Tartrate (Lopressor) 12.5 mg PO BID [facility] Last Admin: 06/20/16 07:54 Dose: 12.5 mg Multivitamins/Minerals/Vitamin C (Tab-A-Lilo) 1 tab PO DAILY [facility] Last Admin: 06/20/16 07:54 Dose: 1 tab Nitroglycerin (Nitrostat) 0.4 mg SL ASDIRECTED PRN PRN Reason: Chest Pain Liothyronine Sodium (5mcg Tablet) 1 tab PO DAILY [facility] Last Admin: 06/20/16 07:56 Dose: 1 tab Progesterone, Micronized 100mg Capsules 3 cap PO BEDTIME [facility] Last Admin: 06/19/16 20:49 Dose: 3 cap Senna/Docusate Sodium (Senna Plus) 2 tab PO BID [facility] Last Admin: 06/20/16 07:54 Dose: 2 tab Sodium Chloride ([place] Nasal [place]) 0 ml NASBOTH BEDTIME [facility] Last Admin: 06/19/16 20:51 Dose: 2 spray Sodium Chloride (Saline Flush) 10 ml FLUSH Q12HR [facility] Sodium Chloride (Saline Flush) 10 ml FLUSH ASDIRECTED PRN PRN Reason: Keep Vein Open Tramadol HCl (Ultram) 50 mg PO BID@0800,2000 [facility] Last Admin: 06/20/16 07:54 Dose: 50 mg Discontinued Medications Atorvastatin Calcium (Lipitor) 10 mg PO QPM [facility] Calcium Carbonate (Oystcal-D 625 Mg-125 Units) 1 tab PO BID [facility] Last Admin: 06/19/16 07:17 Dose: 1 tab Cholecalciferol (Vitamin D3) 2,000 units PO DAILY [facility] Last Admin: 06/19/16 11:00 Dose: 2,000 units Sodium Chloride (Normal Saline) 1,000 mls @ 500 mls/hr IV .BOLUS ONE Stop: 06/18/16 23:55 Last Admin: 06/18/16 22:50 Dose: 500 mls/hr Sodium Chloride (Normal Saline) 1,000 mls @ 75 mls/hr IV ASDIRECTED [facility] Last Admin: 06/19/16 22:16 Dose: 75 mls/hr - Exam General: alert, cooperative HEENT: Mucous membr. moist/pink Neck: trachea midline, no JVD Lungs: Normal respiratory effort, Decreased breath sounds Cardiovascular: Regular Rate, Regular Rhythm Abdomen: bowel sounds present, soft, no tenderness, no distension (Female) Exam: Deferred Back Exam: normal inspection Extremities: edema (right) Skin: warm, dry, intact Neurological: no new focal deficit Psy/Mental Status: alert, other (confusion) - Problem List & Annotations (1) Diabetes SNOMED Code(s): 25663556 Code(s): E11.9 - TYPE 2 DIABETES MELLITUS WITHOUT COMPLICATIONS Status: Acute Priority: High Current Visit: Yes Qualifiers: Diabetes mellitus type: type 2 Diabetes mellitus complication status: without complication (2) Altered mental status SNOMED Code(s): 522813530 Code(s): R41.82 - ALTERED MENTAL STATUS, UNSPECIFIED Status: Acute Current Visit: Yes Qualifiers: Altered mental status type: unspecified Qualified Code(s): R41.82 - Altered mental status, unspecified (3) UTI (urinary tract infection) SNOMED Code(s): 09677096 Code(s): N39.0 - URINARY TRACT INFECTION, SITE NOT SPECIFIED Status: Acute Current Visit: Yes Qualifiers: Urinary tract infection type: acute cystitis Hematuria presence: without hematuria Qualified Code(s): N30.00 - Acute cystitis without hematuria (4) Abnormal CT of brain SNOMED Code(s): 951458204 Code(s): R90.89 - OTH ABNORMAL FINDINGS ON DIAGNOSTIC IMAGING OF CNSL Status: Acute Current Visit: No (5) Hyponatremia SNOMED Code(s): 74718590 Code(s): E87.1 - HYPO-OSMOLALITY AND HYPONATREMIA Status: Acute Priority : High Current Visit: Yes - Problem List Review Problem List Initiated/Reviewed/Updated: Yes - My Orders Last 24 Hours: My Active Orders 06/20/16 06:25 AMIODARONE & METABOLITE [REF] Routine OSMOLALITY - SERUM [REF] Routine VIT D, 25 HYDROXY [REF] Routine 06/20/16 08:00 Consult to Occupational Therapy [OT Evaluation and Treatment] [CONS] Routine Consult to Physical Therapy [PT Evaluation and Treatment] [CONS] Routine 06/20/16 10:00 Sodium Chloride 0.9% [Saline Flush] 10 ml FLUSH ASDIRECTED PRN 06/20/16 10:02 Head wo Cont [CT] Routine 06/20/16 10:08 OSMOLALITY - URINE Routine SODIUM, URINE RAND/24HR Routine 06/20/16 10:09 TOTAL T3 [REF] Routine 06/20/16 10:30 EKG Documentation Completion [RC] ASDIRECTED 06/20/16 20:00 Sodium Chloride 0.9% [Saline Flush] 10 ml FLUSH Q12HR 06/21/16 05:11 Tibia Fibula Rt [CR] Routine CBC WITH AUTO DIFF [HEME] DAILY CMP [COMPREHENSIVE METABOLIC PN,CMP] [CHEM] DAILY CRP [C-REACTIVE PROTEIN] [CHEM] DAILY GABAPENTIN [REF] Routine 06/21/16 08:00 Chest 2V [CR] Routine Chest w Cont [CT] Routine 06/22/16 05:11 CBC WITH AUTO DIFF [HEME] DAILY CMP [COMPREHENSIVE METABOLIC PN,CMP] [CHEM] DAILY CRP [C-REACTIVE PROTEIN] [CHEM] DAILY - Plan Plan:: 06/19/16 Concetta Torre MD Feeling very tired but a little better. Still weak. Still some confusion. 06/20/16 Concetta Torre MD Continues slow improvement. Labs some improvement.
[2016-06-20] MEDS: Gabapentin 300 MG Cap PO SCH (19:07)
[2016-06-20] MEDS: DULoxetine 30 MG Cap PO SCH (19:08)
[2016-06-20] MEDS: Sodium Chloride 0.65% Nasal Spray 45 ML Bottle NASBOTH SCH (19:08)
[2016-06-20] MEDS: PROGESTERONE MICRONIZED 100 MG PO SCH (19:09)
[2016-06-20] MEDS: Sodium Chloride 0.9% 10 ML Syringe FLUSH SCH (19:14)
[2016-06-20] MEDS: Melatonin 3 MG Tab PO SCH (19:18)
[2016-06-20] MEDS: Levofloxacin/Dextrose 5%-Water 500 MG in Premix Bag 1 BAG IV SCH (23:22)
[2016-06-20] MEDS: Sodium Chloride 0.9% 10 ML Syringe FLUSH PRN (23:22)
[2016-06-21 07:54] LABS: CHLORIDE,CL 102 mmol/L (98-107); SODIUM,NA 136 mmol/L (136-145)
[2016-06-21] MEDS ORDERED: Iopamidol 612 MG/ML 100 ML Bottle IVPUSH ONE (08:18)
[2016-06-21] MEDS: Insulin Aspart 100 Units/ML 3 ML Pen SUBCUT SCH (10:37)
[2016-06-21] MEDS: Losartan 50 MG Tab PO SCH (10:38)
[2016-06-21] MEDS: Amiodarone 200 MG Tab PO SCH (10:38)
[2016-06-21] MEDS: Metoprolol Tartrate 25 MG Tab PO SCH ×2 (10:39→19:43)
[2016-06-21] MEDS: Levothyroxine 50 MCG Tab PO SCH (10:40)
[2016-06-21] MEDS: Sodium Chloride 0.9% 10 ML Syringe FLUSH SCH ×2 (10:40→19:29)
[2016-06-21] MEDS: traMADol 50 MG Tab PO SCH ×2 (10:40→19:42)
[2016-06-21] MEDS: Multivitamin Tab PO SCH (10:40)
[2016-06-21] MEDS: Insulin Detemir 100 Units/ML 3 ML Pen SUBCUT SCH (10:41)
[2016-06-21] MEDS ORDERED: Magnesium Oxide 400 MG Tab PO ONE (12:00)
[2016-06-21] MEDS ORDERED: Ferrous Sulfate 160 MG TAB.ER PO SCH (18:00)
[2016-06-21] MEDS ORDERED: Insulin Aspart 100 Units/ML 3 ML Pen SUBCUT ONE (18:00)
[2016-06-21] MEDS ORDERED: Levofloxacin/Dextrose 5%-Water 500 MG in Premix Bag 1 BAG IV SCH (18:00)
[2016-06-21] MEDS: Lactulose Soln 10 GM/15 ML 30 ML UD Cup PO PRN (18:20)
[2016-06-21] MEDS: Sodium Chloride 0.9% 10 ML Syringe FLUSH PRN (18:24)
[2016-06-21] MEDS: Gabapentin 300 MG Cap PO SCH (19:42)
[2016-06-21] MEDS: DULoxetine 30 MG Cap PO SCH (19:42)
[2016-06-21] MEDS: Melatonin 3 MG Tab PO SCH (19:42)
[2016-06-21] MEDS: PROGESTERONE MICRONIZED 100 MG PO SCH (19:43)
[2016-06-21] MEDS: Sodium Chloride 0.65% Nasal Spray 45 ML Bottle NASBOTH SCH (19:45)
--- NOTE | 2016-06-21 20:30 | PCM.PN ---
- General Info Date of Service: 06/21/16 Functional Status: Reports: pain controlled - Review of Systems General: Reports: No Symptoms, Other (starting to feel stronger) HEENT: Reports: no symptoms Pulmonary: Reports: no symptoms Cardiovascular: Reports: No Symptoms Gastrointestinal: Reports: No symptoms Genitourinary: Reports: no symptoms Musculoskeletal: Reports: no symptoms Skin: Reports: no symptoms Neurological: Reports: No Symptoms Psychiatric: Reports: no symptoms - Patient Data Vitals - most recent: Last Vital Signs Temp 99.1 F 06/21/16 16:00 Pulse 59 L 06/21/16 19:43 Resp 18 06/21/16 16:00 BP 154/66 H 06/21/16 19:43 Pulse Ox 98 06/21/16 16:00 Weight - most recent: 158 lb 0.014 oz I&O - last 24 hours: Intake & Output 06/21/16 06/21/16 06/21/16 06:59 14:59 22:59 Intake Total 100 340 Output Total 200 Balance 100 -200 340 Lab Results last 24 hrs: Laboratory Results - last 24 hr 06/20/16 06/20/16 06/20/16 Range/Units 06:25 10:08 10:08 WBC (4.0-10.2) K/uL RBC (3.77-5.09) M/uL Hgb (11.7-15.5) g/dL Hct (34.0-46.0) % MCV (84.0-98.0) fL MCH (28.2-33.3) pg MCHC (31.7-36.0) g/dL RDW (11.2-14.1) % Plt Count (150-350) K/uL Neut % (Auto) (45.0-80.0) % Lymph % (Auto) (10.0-50.0) % [place] % (Auto) (2.0-14.0) % Eos % (Auto) (0.0-5.0) % Baso % (Auto) (0.0-2.0) % Neut # (Auto) (1.40-7.00) K/uL Lymph # (Auto) (0.50-3.50) K/uL [place] # (Auto) (0.00-1.00) K/uL Eos # (Auto) (0.00-0.50) K/uL Baso # (Auto) (0.00-0.20) K/uL Sodium (136-145) mmol/L Potassium (3.5-5.1) mmol/L Chloride (98-107) mmol/L Carbon Dioxide (21.0-32.0) mmol/L BUN (7-18) mg/dL Creatinine (0.51-1.17) mg/dL Est Cr Clr Drug Dosing mL/min Estimated GFR (MDRD) mL/min Glucose (74-106) mg/dL POC Glucose (65-110) mg/dl Serum Osmolality 285 (275-295) mosm/kg Calcium (8.5-10.1) mg/dL Magnesium (1.8-2.4) mg/dL Total Bilirubin (0.2-1.0) mg/dL AST (15-37) U/L ALT (12-78) U/L Alkaline Phosphatase (46-116) IU/L C-Reactive Protein (<=0.9) mg/dL Total Protein (6.4-8.2) g/dL Albumin (3.4-5.0) g/dL Total T3 (87-178) ng/dL Urine Osmolality 397 (300-900) mosm/kg U Sodium Concentration 74 mEq/L 06/20/16 06/21/16 06/21/16 Range/Units 10:09 07:10 07:10 WBC 7.7 (4.0-10.2) K/uL RBC 4.34 (3.77-5.09) M/uL Hgb 11.9 (11.7-15.5) g/dL Hct 36.7 (34.0-46.0) % MCV 84.6 (84.0-98.0) fL MCH 27.4 L (28.2-33.3) pg MCHC 32.4 (31.7-36.0) g/dL RDW 13.9 (11.2-14.1) % Plt Count 437 H (150-350) K/uL Neut % (Auto) 64.9 (45.0-80.0) % Lymph % (Auto) 18.1 (10.0-50.0) % [place] % (Auto) 8.4 (2.0-14.0) % Eos % (Auto) 7.8 H (0.0-5.0) % Baso % (Auto) 0.8 (0.0-2.0) % Neut # (Auto) 5.03 (1.40-7.00) K/uL Lymph # (Auto) 1.40 (0.50-3.50) K/uL [place] # (Auto) 0.65 (0.00-1.00) K/uL Eos # (Auto) 0.60 H (0.00-0.50) K/uL Baso # (Auto) 0.06 (0.00-0.20) K/uL Sodium 136 (136-145) mmol/L Potassium 4.1 (3.5-5.1) mmol/L Chloride 102 (98-107) mmol/L Carbon Dioxide 28.4 (21.0-32.0) mmol/L BUN 18 (7-18) mg/dL Creatinine 0.80 (0.51-1.17) mg/dL Est Cr Clr Drug Dosing 77.03 mL/min Estimated GFR (MDRD) > 60 mL/min Glucose 62 L (74-106) mg/dL POC Glucose (65-110) mg/dl Serum Osmolality (275-295) mosm/kg Calcium 8.7 (8.5-10.1) mg/dL Magnesium (1.8-2.4) mg/dL Total Bilirubin 0.5 (0.2-1.0) mg/dL AST 50 H (15-37) U/L ALT 76 (12-78) U/L Alkaline Phosphatase 222 H (46-116) IU/L C-Reactive Protein 6.3 H (<=0.9) mg/dL Total Protein 6.2 L (6.4-8.2) g/dL Albumin 2.4 L (3.4-5.0) g/dL Total T3 36 L (87-178) ng/dL Urine Osmolality (300-900) mosm/kg U Sodium Concentration mEq/L 06/21/16 06/21/16 06/21/16 Range/Units 07:10 07:14 11:35 WBC (4.0-10.2) K/uL RBC (3.77-5.09) M/uL Hgb (11.7-15.5) g/dL Hct (34.0-46.0) % MCV (84.0-98.0) fL MCH (28.2-33.3) pg MCHC (31.7-36.0) g/dL RDW (11.2-14.1) % Plt Count (150-350) K/uL Neut % (Auto) (45.0-80.0) % Lymph % (Auto) (10.0-50.0) % [place] % (Auto) (2.0-14.0) % Eos % (Auto) (0.0-5.0) % Baso % (Auto) (0.0-2.0) % Neut # (Auto) (1.40-7.00) K/uL Lymph # (Auto) (0.50-3.50) K/uL [place] # (Auto) (0.00-1.00) K/uL Eos # (Auto) (0.00-0.50) K/uL Baso # (Auto) (0.00-0.20) K/uL Sodium (136-145) mmol/L Potassium (3.5-5.1) mmol/L Chloride (98-107) mmol/L Carbon Dioxide (21.0-32.0) mmol/L BUN (7-18) mg/dL Creatinine (0.51-1.17) mg/dL Est Cr Clr Drug Dosing mL/min Estimated GFR (MDRD) mL/min Glucose (74-106) mg/dL POC Glucose 51 L 187 H (65-110) mg/dl Serum Osmolality (275-295) mosm/kg Calcium (8.5-10.1) mg/dL Magnesium 1.8 (1.8-2.4) mg/dL Total Bilirubin (0.2-1.0) mg/dL AST (15-37) U/L ALT (12-78) U/L Alkaline Phosphatase (46-116) IU/L C-Reactive Protein (<=0.9) mg/dL Total Protein (6.4-8.2) g/dL Albumin (3.4-5.0) g/dL Total T3 (87-178) ng/dL Urine Osmolality (300-900) mosm/kg U Sodium Concentration mEq/L 06/21/16 Range/Units 17:04 WBC (4.0-10.2) K/uL RBC (3.77-5.09) M/uL Hgb (11.7-15.5) g/dL Hct (34.0-46.0) % MCV (84.0-98.0) fL MCH (28.2-33.3) pg MCHC (31.7-36.0) g/dL RDW (11.2-14.1) % Plt Count (150-350) K/uL Neut % (Auto) (45.0-80.0) % Lymph % (Auto) (10.0-50.0) % [place] % (Auto) (2.0-14.0) % Eos % (Auto) (0.0-5.0) % Baso % (Auto) (0.0-2.0) % Neut # (Auto) (1.40-7.00) K/uL Lymph # (Auto) (0.50-3.50) K/uL [place] # (Auto) (0.00-1.00) K/uL Eos # (Auto) (0.00-0.50) K/uL Baso # (Auto) (0.00-0.20) K/uL Sodium (136-145) mmol/L Potassium (3.5-5.1) mmol/L Chloride (98-107) mmol/L Carbon Dioxide (21.0-32.0) mmol/L BUN (7-18) mg/dL Creatinine (0.51-1.17) mg/dL Est Cr Clr Drug Dosing mL/min Estimated GFR (MDRD) mL/min Glucose (74-106) mg/dL POC Glucose 192 H (65-110) mg/dl Serum Osmolality (275-295) mosm/kg Calcium (8.5-10.1) mg/dL Magnesium (1.8-2.4) mg/dL Total Bilirubin (0.2-1.0) mg/dL AST (15-37) U/L ALT (12-78) U/L Alkaline Phosphatase (46-116) IU/L C-Reactive Protein (<=0.9) mg/dL Total Protein (6.4-8.2) g/dL Albumin (3.4-5.0) g/dL Total T3 (87-178) ng/dL Urine Osmolality (300-900) mosm/kg U Sodium Concentration mEq/L Med Orders - Current: Current Medications Acetaminophen (Tylenol) 650 mg PO Q4HR PRN PRN Reason: Pain Last Admin: 06/19/16 10:08 Dose: 650 mg Amiodarone HCl (Cordarone) 100 mg PO DAILY [facility] [place] Artificial Tears (Liquitears 1.4% Ophth Soln) 0 ml EYEBOTH Q6HR PRN PRN Reason: Dry Eyes Bisacodyl (Dulcolax) 10 mg RECTAL DAILY PRN PRN Reason: Constipation Duloxetine HCl (Cymbalta) 60 mg PO BEDTIME [facility] [place] Last Admin: 06/21/16 19:42 Dose: 60 mg Ferrous Sulfate (Slow Release Iron) 160 mg PO DAILY@1800 [facility] [place] Last Admin: 06/21/16 18:20 Dose: 160 mg Gabapentin (Neurontin) 300 mg PO BEDTIME [facility] [place] Last Admin: 06/21/16 19:42 Dose: 300 mg Levofloxacin/Dextrose 500 mg/ (Premix) 100 mls @ 100 mls/hr IV DAILY@1800 [facility] [place] Last Infusion: 06/21/16 19:30 Dose: Infused Insulin Detemir (Levemir) 7 unit SUBCUT DAILY [facility] [place] Lactulose (Cephulac) 20 gm PO Q8HR PRN PRN Reason: Constipation Last Admin: 06/21/16 18:20 Dose: 20 gm Levothyroxine Sodium (Synthroid) 50 mcg PO DAILY [facility] [place] Last Admin: 06/21/16 10:40 Dose: 50 mcg Losartan Potassium (Cozaar) 50 mg PO DAILY [facility] [place] Last Admin: 06/21/16 10:38 Dose: 50 mg Melatonin (Melatonin) 3 mg PO BEDTIME [facility] [place] Last Admin: 06/21/16 19:42 Dose: 3 mg Metoprolol Tartrate (Lopressor) 12.5 mg PO Q12HR [facility] [place] Last Admin: 06/21/16 19:43 Dose: 12.5 mg Multivitamins/Minerals/Vitamin C (Tab-A-Lilo) 1 tab PO DAILY@1200 [facility] [place] Nitroglycerin (Nitrostat) 0.4 mg SL ASDIRECTED PRN PRN Reason: Chest Pain Liothyronine Sodium (5mcg Tablet) 1 tab PO DAILY [facility] [place] Last Admin: 06/21/16 10:39 Dose: 1 tab Progesterone, Micronized 100mg Capsules 3 cap PO BEDTIME [facility] [place] Last Admin: 06/21/16 19:43 Dose: 3 cap Senna/Docusate Sodium (Senna Plus) 2 tab PO BID [facility] [place] Last Admin: 06/21/16 18:20 Dose: 2 tab Sodium Chloride ([place] Nasal [place]) 0 ml NASBOTH BEDTIME [facility] [place] Last Admin: 06/21/16 19:45 Dose: 2 spray Sodium Chloride (Saline Flush) 10 ml FLUSH Q12HR [facility] [place] Last Admin: 06/21/16 19:29 Dose: 10 ml Sodium Chloride (Saline Flush) 10 ml FLUSH ASDIRECTED PRN PRN Reason: Keep Vein Open Last Admin: 06/21/16 18:24 Dose: 10 ml Tramadol HCl (Ultram) 50 mg PO BID@0800,2000 [facility] [place] Last Admin: 06/21/16 19:42 Dose: 50 mg Discontinued Medications Amiodarone HCl (Cordarone) 200 mg PO DAILY [facility] [place] Last Admin: 06/21/16 10:38 Dose: 200 mg Atorvastatin Calcium (Lipitor) 10 mg PO QPM [facility] [place] Calcium Carbonate (Oystcal-D 625 Mg-125 Units) 1 tab PO BID [facility] [place] Last Admin: 06/19/16 07:17 Dose: 1 tab Cholecalciferol (Vitamin D3) 2,000 units PO DAILY [facility] [place] Last Admin: 06/19/16 11:00 Dose: 2,000 units Sodium Chloride (Normal Saline) 1,000 mls @ 500 mls/hr IV .BOLUS ONE Stop: 06/18/16 23:55 Last Admin: 06/18/16 22:50 Dose: 500 mls/hr Levofloxacin/Dextrose 500 mg/ (Premix) 100 mls @ 100 mls/hr IV Q24H [facility] [place] Last Admin: 06/20/16 23:22 Dose: 100 mls/hr Sodium Chloride (Normal Saline) 1,000 mls @ 75 mls/hr IV ASDIRECTED [facility] [place] Last Admin: 06/19/16 22:16 Dose: 75 mls/hr Insulin Aspart (Novolog) 4 unit SUBCUT TIDAC [facility] [place] Last Admin: 06/21/16 10:37 Dose: Not Given Insulin Aspart (Novolog) 4 unit SUBCUT ONETIME ONE PRN Reason: Protocol Stop: 06/21/16 18:01 Last Admin: 06/21/16 18:19 Dose: 4 units Insulin Detemir (Levemir) 7 unit SUBCUT BID@08,1999 [facility] [place] Last Admin: 06/21/16 10:41 Dose: 7 unit Iopamidol (Isovue-300 (61%)) 100 ml IVPUSH ONETIME ONE Stop: 06/21/16 08:19 Last Admin: 06/21/16 09:22 Dose: 100 ml Magnesium Oxide (Magnesium Oxide) 400 mg PO ONETIME ONE Stop: 06/21/16 12:01 Last Admin: 06/21/16 12:58 Dose: 400 mg Metoprolol Tartrate (Lopressor) 12.5 mg PO BID [facility] [place] Last Admin: 06/21/16 10:39 Dose: 12.5 mg Multivitamins/Minerals/Vitamin C (Tab-A-Lilo) 1 tab PO DAILY [facility] [place] Last Admin: 06/21/16 10:40 Dose: 1 tab - Exam General: alert, cooperative, no acute distress HEENT: Mucous membr. moist/pink, Other (gum hypertrophy) Neck: trachea midline, no JVD Lungs: Normal respiratory effort, Decreased breath sounds, Other (left rib pain) Cardiovascular: Regular Rate, Regular Rhythm Abdomen: bowel sounds present, soft, no tenderness, no distension (Female) Exam: Deferred Back Exam: normal inspection Extremities: edema (right) Skin: warm, dry, intact Neurological: no new focal deficit Psy/Mental Status: alert, normal affect, normal mood - Problem List & Annotations (1) Diabetes SNOMED Code(s): 39107572 Code(s): E11.9 - TYPE 2 DIABETES MELLITUS WITHOUT COMPLICATIONS Status: Acute Priority: High Current Visit: Yes Qualifiers: Diabetes mellitus type: type 2 Diabetes mellitus complication status: without complication (2) Altered mental status SNOMED Code(s): 511735461 Code(s): R41.82 - ALTERED MENTAL STATUS, UNSPECIFIED Status: Acute Current Visit: Yes Qualifiers: Altered mental status type: unspecified Qualified Code(s): R41.82 - Altered mental status, unspecified (3) UTI (urinary tract infection) SNOMED Code(s): 62022727 Code(s): N39.0 - URINARY TRACT INFECTION, SITE NOT SPECIFIED Status: Acute Current Visit: Yes Qualifiers: Urinary tract infection type: acute cystitis Hematuria presence: without hematuria Qualified Code(s): N30.00 - Acute cystitis without hematuria (4) Abnormal CT of brain SNOMED Code(s): 215845388 Code(s): R90.89 - OTH ABNORMAL FINDINGS ON DIAGNOSTIC IMAGING OF CNSL Status: Acute Current Visit: No (5) Hyponatremia SNOMED Code(s): 24819007 Code(s): E87.1 - HYPO-OSMOLALITY AND HYPONATREMIA Status: Acute Priority : High Current Visit: Yes - Problem List Review Problem List Initiated/Reviewed/Updated: Yes - My Orders Last 24 Hours: My Active Orders 06/20/16 20:00 Sodium Chloride 0.9% [Saline Flush] 10 ml FLUSH Q12HR 06/21/16 05:11 Tibia Fibula Rt [CR] Routine 06/21/16 07:10 GABAPENTIN [REF] Routine 06/21/16 08:00 Chest 2V [CR] Routine Chest w Cont [CT] Routine 06/21/16 18:00 Ferrous Sulfate [Slow Release Iron] 160 mg PO DAILY@1800 Levofloxacin/Dextrose 5%-Water [Levaquin in D5W 500 MG/100 ML] 500 mg Premix Bag 1 bag IV DAILY@1800 06/21/16 20:00 Metoprolol Tartrate [Lopressor] 12.5 mg PO Q12HR 06/22/16 05:11 EKG Documentation Completion [RC] ASDIRECTED BLOOD GAS VENOUS [BG] Routine CBC WITH AUTO DIFF [HEME] DAILY CMP [COMPREHENSIVE METABOLIC PN,CMP] [CHEM] DAILY CRP [C-REACTIVE PROTEIN] [CHEM] DAILY EKG 12 Lead [EK] Routine 06/22/16 08:00 Amiodarone [Cordarone] 100 mg PO DAILY Insulin Detemir [Levemir] 7 unit SUBCUT DAILY 06/22/16 12:00 Multivitamins [Tab-A-Lilo] 1 tab PO DAILY@1200 - Plan Plan:: 06/19/16 Concetta Torre MD Feeling very tired but a little better. Still weak. Still some confusion. 06/20/16 Concetta Torre MD Continues slow improvement. Labs some improvement. 06/21/16 Concetta Torre MD Starting to feel stronger. Less mental confusion. Urine C&S= E coli sensitive to levoquin to continue. Na+ corrected. Chest CT results pending. Continue medical therapy.
[2016-06-22 07:05] LABS: O2 DELIVERY DEVICE ROOM AIR; O2 FLOW RATE 0 L/min
[2016-06-22 07:24] LABS: PH,VENOUS 7.35 (7.31-7.41)
[2016-06-22 07:25] LABS: BASE EXCESS VENOUS 1 mmol/L ((-2)-3); BICARBONATE,VENOUS 26 mmol/L (23-28); O2 SATURATION VENOUS 78 %; PCO2 VENOUS 48 mmHG (41-51); PO2 VENOUS 45 mmHG
[2016-06-22] MEDS: Levothyroxine 50 MCG Tab PO SCH (07:35)
[2016-06-22] MEDS: traMADol 50 MG Tab PO SCH (07:35)
[2016-06-22] MEDS: Losartan 50 MG Tab PO SCH (07:37)
[2016-06-22] MEDS: Metoprolol Tartrate 25 MG Tab PO SCH (07:37)
[2016-06-22 07:44] VITALS: BP 175/67
[2016-06-22] MEDS: Sodium Chloride 0.9% 10 ML Syringe FLUSH SCH (07:44)
[2016-06-22 07:57] LABS: CHLORIDE,CL 100 mmol/L (98-107); SODIUM,NA 135 mmol/L (136-145)
[2016-06-22] MEDS ORDERED: Amiodarone 200 MG Tab PO SCH (08:00)
[2016-06-22] MEDS ORDERED: Insulin Detemir 100 Units/ML 3 ML Pen SUBCUT SCH ×2 (08:00→20:00)
[2016-06-22] MEDS ORDERED: Insulin Aspart 100 Units/ML 3 ML Pen SUBCUT ONE (09:00)
[2016-06-22] MEDS ORDERED: amLODIPine 5 MG Tab PO ONE (09:00)
[2016-06-22] MEDS ORDERED: Levofloxacin/Dextrose 5%-Water 500 MG in Premix Bag 1 BAG IV SCH (11:00)
[2016-06-22] MEDS: Lactulose Soln 10 GM/15 ML 30 ML UD Cup PO PRN (11:30)
[2016-06-22] MEDS ORDERED: Insulin Aspart 100 Units/ML 3 ML Pen SUBCUT SCH (12:00)
[2016-06-22] MEDS ORDERED: Multivitamin Tab PO SCH (12:00)
--- NOTE | 2016-06-22 15:50 | PCM.PN ---
- General Info Date of Service: 06/22/16 Functional Status: Reports: pain controlled, tolerating diet - Review of Systems General: Reports: No Symptoms HEENT: Reports: no symptoms Pulmonary: Reports: no symptoms Cardiovascular: Reports: No Symptoms Gastrointestinal: Reports: No symptoms Genitourinary: Reports: no symptoms Musculoskeletal: Reports: no symptoms Skin: Reports: no symptoms Neurological: Reports: No Symptoms Psychiatric: Reports: no symptoms - Patient Data Vitals - most recent: Last Vital Signs Temp 99.2 F 06/22/16 08:00 Pulse 65 06/22/16 08:00 Resp 18 06/22/16 08:00 BP 175/67 H 06/22/16 09:59 Pulse Ox 94 L 06/22/16 08:00 Weight - most recent: 158 lb 0.014 oz I&O - last 24 hours: Intake & Output 06/22/16 06/22/16 06/22/16 06:59 14:59 22:59 Intake Total 1200 820 Output Total 400 400 Balance 800 420 Lab Results last 24 hrs: Laboratory Results - last 24 hr 06/21/16 06/21/16 06/22/16 Range/Units 11:35 17:04 06:40 WBC (4.0-10.2) K/uL RBC (3.77-5.09) M/uL Hgb (11.7-15.5) g/dL Hct (34.0-46.0) % MCV (84.0-98.0) fL MCH (28.2-33.3) pg MCHC (31.7-36.0) g/dL RDW (11.2-14.1) % Plt Count (150-350) K/uL Neut % (Auto) (45.0-80.0) % Lymph % (Auto) (10.0-50.0) % Gage % (Auto) (2.0-14.0) % Eos % (Auto) (0.0-5.0) % Baso % (Auto) (0.0-2.0) % Neut # (Auto) (1.40-7.00) K/uL Lymph # (Auto) (0.50-3.50) K/uL Gage # (Auto) (0.00-1.00) K/uL Eos # (Auto) (0.00-0.50) K/uL Baso # (Auto) (0.00-0.20) K/uL VBG pH (7.31-7.41) VBG pCO2 (41-51) mmHG VBG pO2 mmHG VBG HCO3 (23-28) mmol/L VBG Total CO2 mmol/L VBG O2 Saturation % VBG Base Excess ((-2)-3) mmol/L O2 Delivery Device Oxygen Flow Rate L/min Sodium 135 L (136-145) mmol/L Potassium 4.3 (3.5-5.1) mmol/L Chloride 100 (98-107) mmol/L Carbon Dioxide 26.8 (21.0-32.0) mmol/L BUN 19 H (7-18) mg/dL Creatinine 0.80 (0.51-1.17) mg/dL Est Cr Clr Drug Dosing 77.03 mL/min Estimated GFR (MDRD) > 60 mL/min Glucose 294 H* (74-106) mg/dL POC Glucose 187 H 192 H (65-110) mg/dl Calcium 8.3 L (8.5-10.1) mg/dL Total Bilirubin 0.5 (0.2-1.0) mg/dL AST 24 (15-37) U/L ALT 57 (12-78) U/L Alkaline Phosphatase 202 H (46-116) IU/L C-Reactive Protein 4.6 H (<=0.9) mg/dL Total Protein 6.0 L (6.4-8.2) g/dL Albumin 2.3 L (3.4-5.0) g/dL 06/22/16 06/22/16 06/22/16 Range/Units 06:40 06:40 07:33 WBC 7.6 (4.0-10.2) K/uL RBC 4.18 (3.77-5.09) M/uL Hgb 11.5 L (11.7-15.5) g/dL Hct 35.5 (34.0-46.0) % MCV 84.9 (84.0-98.0) fL MCH 27.5 L (28.2-33.3) pg MCHC 32.4 (31.7-36.0) g/dL RDW 14.0 (11.2-14.1) % Plt Count 465 H (150-350) K/uL Neut % (Auto) 62.3 (45.0-80.0) % Lymph % (Auto) 20.0 (10.0-50.0) % Gage % (Auto) 9.2 (2.0-14.0) % Eos % (Auto) 7.2 H (0.0-5.0) % Baso % (Auto) 1.3 (0.0-2.0) % Neut # (Auto) 4.76 (1.40-7.00) K/uL Lymph # (Auto) 1.53 (0.50-3.50) K/uL Gage # (Auto) 0.70 (0.00-1.00) K/uL Eos # (Auto) 0.55 H (0.00-0.50) K/uL Baso # (Auto) 0.10 (0.00-0.20) K/uL VBG pH 7.35 (7.31-7.41) VBG pCO2 48 (41-51) mmHG VBG pO2 45 mmHG VBG HCO3 26 (23-28) mmol/L VBG Total CO2 28 mmol/L VBG O2 Saturation 78 % VBG Base Excess 1 ((-2)-3) mmol/L O2 Delivery Device Room air Oxygen Flow Rate 0 L/min Sodium (136-145) mmol/L Potassium (3.5-5.1) mmol/L Chloride (98-107) mmol/L Carbon Dioxide (21.0-32.0) mmol/L BUN (7-18) mg/dL Creatinine (0.51-1.17) mg/dL Est Cr Clr Drug Dosing mL/min Estimated GFR (MDRD) mL/min Glucose (74-106) mg/dL POC Glucose 261 H* (65-110) mg/dl Calcium (8.5-10.1) mg/dL Total Bilirubin (0.2-1.0) mg/dL AST (15-37) U/L ALT (12-78) U/L Alkaline Phosphatase (46-116) IU/L C-Reactive Protein (<=0.9) mg/dL Total Protein (6.4-8.2) g/dL Albumin (3.4-5.0) g/dL 06/22/16 Range/Units 11:19 WBC (4.0-10.2) K/uL RBC (3.77-5.09) M/uL Hgb (11.7-15.5) g/dL Hct (34.0-46.0) % MCV (84.0-98.0) fL MCH (28.2-33.3) pg MCHC (31.7-36.0) g/dL RDW (11.2-14.1) % Plt Count (150-350) K/uL Neut % (Auto) (45.0-80.0) % Lymph % (Auto) (10.0-50.0) % Gage % (Auto) (2.0-14.0) % Eos % (Auto) (0.0-5.0) % Baso % (Auto) (0.0-2.0) % Neut # (Auto) (1.40-7.00) K/uL Lymph # (Auto) (0.50-3.50) K/uL Gage # (Auto) (0.00-1.00) K/uL Eos # (Auto) (0.00-0.50) K/uL Baso # (Auto) (0.00-0.20) K/uL VBG pH (7.31-7.41) VBG pCO2 (41-51) mmHG VBG pO2 mmHG VBG HCO3 (23-28) mmol/L VBG Total CO2 mmol/L VBG O2 Saturation % VBG Base Excess ((-2)-3) mmol/L O2 Delivery Device Oxygen Flow Rate L/min Sodium (136-145) mmol/L Potassium (3.5-5.1) mmol/L Chloride (98-107) mmol/L Carbon Dioxide (21.0-32.0) mmol/L BUN (7-18) mg/dL Creatinine (0.51-1.17) mg/dL Est Cr Clr Drug Dosing mL/min Estimated GFR (MDRD) mL/min Glucose (74-106) mg/dL POC Glucose 347 H* (65-110) mg/dl Calcium (8.5-10.1) mg/dL Total Bilirubin (0.2-1.0) mg/dL AST (15-37) U/L ALT (12-78) U/L Alkaline Phosphatase (46-116) IU/L C-Reactive Protein (<=0.9) mg/dL Total Protein (6.4-8.2) g/dL Albumin (3.4-5.0) g/dL Med Orders - Current: Current Medications Acetaminophen (Tylenol) 650 mg PO Q4HR PRN PRN Reason: Pain Last Admin: 06/19/16 10:08 Dose: 650 mg Amiodarone HCl (Cordarone) 100 mg PO DAILY [facility] Last Admin: 06/22/16 07:38 Dose: 100 mg Amlodipine Besylate (Norvasc) 2.5 mg PO BEDTIME [facility] Artificial Tears (Liquitears 1.4% Ophth Soln) 0 ml EYEBOTH Q6HR PRN PRN Reason: Dry Eyes Bisacodyl (Dulcolax) 10 mg RECTAL DAILY PRN PRN Reason: Constipation Duloxetine HCl (Cymbalta) 60 mg PO BEDTIME [facility] Last Admin: 06/21/16 19:42 Dose: 60 mg Ferrous Sulfate (Slow Release Iron) 160 mg PO DAILY@1800 [facility] Last Admin: 06/21/16 18:20 Dose: 160 mg Gabapentin (Neurontin) 300 mg PO BEDTIME [facility] Last Admin: 06/21/16 19:42 Dose: 300 mg Levofloxacin/Dextrose 500 mg/ (Premix) 100 mls @ 100 mls/hr IV Q24H [facility] Last Admin: 06/22/16 10:01 Dose: 100 mls/hr Insulin Aspart (Novolog) 4 unit SUBCUT TID@0800,1200,1800 [facility] PRN Reason: Protocol Last Admin: 06/22/16 11:20 Dose: 8 units Insulin Detemir (Levemir) 7 unit SUBCUT Q12HR [facility] Lactulose (Cephulac) 20 gm PO Q8HR PRN PRN Reason: Constipation Last Admin: 06/22/16 11:30 Dose: 20 gm Levothyroxine Sodium (Synthroid) 50 mcg PO DAILY [facility] Last Admin: 06/22/16 07:35 Dose: 50 mcg Losartan Potassium (Cozaar) 50 mg PO DAILY [facility] Last Admin: 06/22/16 07:37 Dose: 50 mg Melatonin (Melatonin) 3 mg PO BEDTIME [facility] Last Admin: 06/21/16 19:42 Dose: 3 mg Metoprolol Tartrate (Lopressor) 12.5 mg PO Q12HR [facility] Last Admin: 06/22/16 07:37 Dose: 12.5 mg Multivitamins/Minerals/Vitamin C (Tab-A-Lilo) 1 tab PO DAILY@1200 [facility] Last Admin: 06/22/16 11:19 Dose: 1 tab Nitroglycerin (Nitrostat) 0.4 mg SL ASDIRECTED PRN PRN Reason: Chest Pain Liothyronine Sodium (5mcg Tablet) 1 tab PO DAILY [facility] Last Admin: 06/22/16 07:40 Dose: 1 tab Progesterone, Micronized 100mg Capsules 3 cap PO BEDTIME [facility] Last Admin: 06/21/16 19:43 Dose: 3 cap Senna/Docusate Sodium (Senna Plus) 2 tab PO BID [facility] Last Admin: 06/22/16 07:39 Dose: 2 tab Sodium Chloride ([place] Nasal [place]) 0 ml NASBOTH BEDTIME [facility] Last Admin: 06/21/16 19:45 Dose: 2 spray Sodium Chloride (Saline Flush) 10 ml FLUSH Q12HR [facility] Last Admin: 06/22/16 07:44 Dose: 10 ml Sodium Chloride (Saline Flush) 10 ml FLUSH ASDIRECTED PRN PRN Reason: Keep Vein Open Last Admin: 06/21/16 18:24 Dose: 10 ml Tramadol HCl (Ultram) 50 mg PO BID@0800,2000 [facility] Last Admin: 06/22/16 07:35 Dose: 50 mg Discontinued Medications Amiodarone HCl (Cordarone) 200 mg PO DAILY [facility] Last Admin: 06/21/16 10:38 Dose: 200 mg Amlodipine Besylate (Norvasc) 2.5 mg PO ONETIME ONE Stop: 06/22/16 09:01 Last Admin: 06/22/16 09:59 Dose: 2.5 mg Atorvastatin Calcium (Lipitor) 10 mg PO QPM [facility] Calcium Carbonate (Oystcal-D 625 Mg-125 Units) 1 tab PO BID [facility] Last Admin: 06/19/16 07:17 Dose: 1 tab Cholecalciferol (Vitamin D3) 2,000 units PO DAILY [facility] Last Admin: 06/19/16 11:00 Dose: 2,000 units Sodium Chloride (Normal Saline) 1,000 mls @ 500 mls/hr IV .BOLUS ONE Stop: 06/18/16 23:55 Last Admin: 06/18/16 22:50 Dose: 500 mls/hr Levofloxacin/Dextrose 500 mg/ (Premix) 100 mls @ 100 mls/hr IV Q24H [facility] Last Admin: 06/20/16 23:22 Dose: 100 mls/hr Sodium Chloride (Normal Saline) 1,000 mls @ 75 mls/hr IV ASDIRECTED [facility] Last Admin: 06/19/16 22:16 Dose: 75 mls/hr Levofloxacin/Dextrose 500 mg/ (Premix) 100 mls @ 100 mls/hr IV DAILY@1800 [facility] Last Infusion: 06/21/16 19:30 Dose: Infused Insulin Aspart (Novolog) 4 unit SUBCUT TIDAC [facility] Last Admin: 06/21/16 10:37 Dose: Not Given Insulin Aspart (Novolog) 4 unit SUBCUT ONETIME ONE PRN Reason: Protocol Stop: 06/21/16 18:01 Last Admin: 06/21/16 18:19 Dose: 4 units Insulin Aspart (Novolog) 6 unit SUBCUT ONETIME ONE PRN Reason: Protocol Stop: 06/22/16 09:01 Last Admin: 06/22/16 09:59 Dose: 6 units Insulin Detemir (Levemir) 7 unit SUBCUT BID@0800,2000 [facility] Last Admin: 06/21/16 10:41 Dose: 7 unit Insulin Detemir (Levemir) 7 unit SUBCUT DAILY [facility] Last Admin: 06/22/16 07:41 Dose: 7 unit Iopamidol (Isovue-300 (61%)) 100 ml IVPUSH ONETIME ONE Stop: 06/21/16 08:19 Last Admin: 06/21/16 09:22 Dose: 100 ml Magnesium Oxide (Magnesium Oxide) 400 mg PO ONETIME ONE Stop: 06/21/16 12:01 Last Admin: 06/21/16 12:58 Dose: 400 mg Metoprolol Tartrate (Lopressor) 12.5 mg PO BID [facility] Last Admin: 06/21/16 10:39 Dose: 12.5 mg Multivitamins/Minerals/Vitamin C (Tab-A-Lilo) 1 tab PO DAILY [facility] Last Admin: 06/21/16 10:40 Dose: 1 tab - Exam General: alert, cooperative, no acute distress HEENT: Mucous membr. moist/pink Neck: trachea midline, no JVD Lungs: Normal respiratory effort, Decreased breath sounds, Other (ribs tender) Cardiovascular: Irregular Rhythm Abdomen: bowel sounds present, soft, no tenderness, no distension (Female) Exam: Deferred Back Exam: normal inspection Extremities: edema (right) Skin: warm, dry, intact Wound/Incisions: healing well Neurological: no new focal deficit Psy/Mental Status: alert, normal mood - Problem List & Annotations (1) Diabetes SNOMED Code(s): 87121542 Code(s): E11.9 - TYPE 2 DIABETES MELLITUS WITHOUT COMPLICATIONS Status: Acute Priority: High Current Visit: Yes Qualifiers: Diabetes mellitus type: type 2 Diabetes mellitus complication status: without complication (2) Altered mental status SNOMED Code(s): 413929561 Code(s): R41.82 - ALTERED MENTAL STATUS, UNSPECIFIED Status: Acute Current Visit: Yes Qualifiers: Altered mental status type: unspecified Qualified Code(s): R41.82 - Altered mental status, unspecified (3) UTI (urinary tract infection) SNOMED Code(s): 80588999 Code(s): N39.0 - URINARY TRACT INFECTION, SITE NOT SPECIFIED Status: Acute Current Visit: Yes Qualifiers: Urinary tract infection type: acute cystitis Hematuria presence: without hematuria Qualified Code(s): N30.00 - Acute cystitis without hematuria (4) Abnormal CT of brain SNOMED Code(s): 304013673 Code(s): R90.89 - OTH ABNORMAL FINDINGS ON DIAGNOSTIC IMAGING OF CNSL Status: Acute Current Visit: No (5) Hyponatremia SNOMED Code(s): 76325102 Code(s): E87.1 - HYPO-OSMOLALITY AND HYPONATREMIA Status: Acute Priority : High Current Visit: Yes (6) Pleural effusion, bacterial SNOMED Code(s): 29606622 Code(s): J90 - PLEURAL EFFUSION, NOT ELSEWHERE CLASSIFIED Status: Acute Priority: High Current Visit: Yes (7) Ribs, multiple fractures SNOMED Code(s): 0613230 Code(s): S22.49XA - MULTIPLE FRACTURES OF RIBS, UNSP SIDE, INIT FOR CLOS FX Status: Acute Current Visit: Yes Qualifiers: Encounter type: initial encounter Fracture type: closed Laterality: bilateral Qualified Code(s): S22.43XA - Multiple fractures of ribs, bilateral , initial encounter for closed fracture (8) Atelectasis of both lungs SNOMED Code(s): 04083428 Code(s): J98.11 - ATELECTASIS Status: Acute Priority: High Current Visit: Yes (9) Tibia/fibula fracture SNOMED Code(s): 136043119 Code(s): S82.209A - UNSP FRACTURE OF SHAFT OF UNSP TIBIA, INIT FOR CLOS FX; S82.409A - UNSP FRACTURE OF SHAFT OF UNSP FIBULA, INIT FOR CLOS FX Status: Acute Priority: High Current Visit: Yes Qualifiers: Encounter type: subsequent encounter Fracture type: closed Laterality: right Fracture healing: with routine healing Qualified Code(s): S82.201D - Unspecified fracture of shaft of right tibia, subsequent encounter for closed fracture with routine healing; S82.401D - Unspecified fracture of shaft of right fibula, subsequent encounter for closed fracture with routine healing - Problem List Review Problem List Initiated/Reviewed/Updated: Yes - My Orders Last 24 Hours: My Active Orders 06/21/16 18:00 Ferrous Sulfate [Slow Release Iron] 160 mg PO DAILY@1800 06/21/16 20:00 Metoprolol Tartrate [Lopressor] 12.5 mg PO Q12HR 06/22/16 08:00 Amiodarone [Cordarone] 100 mg PO DAILY 06/22/16 09:03 Incentive Spirometry [RT Incentive Spirometry] [RC] Q1HWA 06/22/16 09:07 Communication Order [RC] ROUTINE 06/22/16 11:00 Levofloxacin/Dextrose 5%-Water [Levaquin in D5W 500 MG/100 ML] 500 mg Premix Bag 1 bag IV Q24H 06/22/16 12:00 Insulin Aspart [NovoLOG] 4 unit SUBCUT TID@0800,1200,1800 Multivitamins [Tab-A-Lilo] 1 tab PO DAILY@1200 06/22/16 15:01 Discontinue Saline Lock [Peripheral IV Discontinue] [OM.PC] Routine 06/22/16 15:19 Ready for Discharge [RC] PER UNIT ROUTINE 06/22/16 20:00 Insulin Detemir [Levemir] 7 unit SUBCUT Q12HR amLODIPine [Norvasc] 2.5 mg PO BEDTIME - Plan Plan:: 06/19/16 Concetta Torre MD Feeling very tired but a little better. Still weak. Still some confusion. 06/20/16 Concetta Torre MD Continues slow improvement. Labs some improvement. 06/21/16 Concetta Torre MD Starting to feel stronger. Less mental confusion. Urine C&S= E coli sensitive to levoquin to continue. Na+ corrected. Chest CT results pending. Continue medical therapy. 06/22/16 Feeling much better. Discussed lab results, x-ray and CT results. Stable and ready for discharge back to [place].
--- NOTE | 2016-06-22 15:51 | PCM.DCSUM1 ---
Discharge Summary - Discharge Data Discharge Date: 06/22/16 Discharge Disposition: DC/Tfer to SNF 03 Condition: Good - Discharge Diagnosis/Problem(s) (1) Diabetes SNOMED Code(s): 59401807 ICD Code: E11.9 - TYPE 2 DIABETES MELLITUS WITHOUT COMPLICATIONS Status: Acute Priority: High Current Visit: Yes Qualifiers: Diabetes mellitus type: type 2 Diabetes mellitus complication status: without complication (2) Altered mental status SNOMED Code(s): 945248634 ICD Code: R41.82 - ALTERED MENTAL STATUS, UNSPECIFIED Status: Acute Current Visit: Yes Qualifiers: Altered mental status type: unspecified Qualified Code(s): R41.82 - Altered mental status, unspecified (3) UTI (urinary tract infection) SNOMED Code(s): 12900658 ICD Code: N39.0 - URINARY TRACT INFECTION, SITE NOT SPECIFIED Status: Acute Current Visit: Yes Qualifiers: Urinary tract infection type: acute cystitis Hematuria presence: without hematuria Qualified Code(s): N30.00 - Acute cystitis without hematuria (4) Abnormal CT of brain SNOMED Code(s): 046271104 ICD Code: R90.89 - [facility] ABNORMAL FINDINGS ON DIAGNOSTIC IMAGING OF CNSL Status: Acute Current Visit: No (5) Hyponatremia SNOMED Code(s): 78825029 ICD Code: E87.1 - HYPO-OSMOLALITY AND HYPONATREMIA Status: Acute Priority : High Current Visit: Yes (6) Pleural effusion, bacterial SNOMED Code(s): 88736087 ICD Code: J90 - PLEURAL EFFUSION, NOT ELSEWHERE CLASSIFIED Status: Acute Priority: High Current Visit: Yes (7) Ribs, multiple fractures SNOMED Code(s): 5393420 ICD Code: S22.49XA - MULTIPLE FRACTURES OF RIBS, UNSP SIDE, INIT FOR CLOS FX Status: Acute Current Visit: Yes Qualifiers: Encounter type: initial encounter Fracture type: closed Laterality: bilateral Qualified Code(s): S22.43XA - Multiple fractures of ribs, bilateral , initial encounter for closed fracture (8) Atelectasis of both lungs SNOMED Code(s): 19001606 ICD Code: J98.11 - ATELECTASIS Status: Acute Priority: High Current Visit: Yes (9) Tibia/fibula fracture SNOMED Code(s): 131270730 ICD Code: S82.209A - UNSP FRACTURE OF SHAFT OF UNSP TIBIA, INIT FOR CLOS FX; S82.409A - UNSP FRACTURE OF SHAFT OF UNSP FIBULA, INIT FOR CLOS FX Status: Acute Priority: High Current Visit: Yes Qualifiers: Encounter type: subsequent encounter Fracture type: closed Laterality: right Fracture healing: with routine healing Qualified Code(s): S82.201D - Unspecified fracture of shaft of right tibia, subsequent encounter for closed fracture with routine healing; S82.401D - Unspecified fracture of shaft of right fibula, subsequent encounter for closed fracture with routine healing - Patient Summary/Data Consults: Consultations 06/20/16 08:00 Consult to Occupational Therapy [OT Evaluation and Treatment] [CONS] Routine Consult to Physical Therapy [PT Evaluation and Treatment] [CONS] Routine - Patient Instructions Diet: Diabetic Diet Activity: Cough & Deep Breathe, Elevate Extremity (right prn), Non Weight Bearing (to right leg until after Dr. Gupta appointment on 07/04/16) Driving: Do Not Drive Showering/Bathing: May Shower - Discharge Plan Prescriptions/Med Rec: Amiodarone [Cordarone] 100 mg PO DAILY #30 tablet Levofloxacin [Levaquin] 500 mg PO Q24H #7 tablet amLODIPine [Norvasc] 2.5 mg PO BEDTIME #30 tablet Home Medications: Home Meds Acetaminophen [Tylenol] 650 mg PO Q4HR PRN 06/07/16 [History] Aspirin [Halfprin] 81 mg PO BRK 06/07/16 [History] Bisacodyl 10 mg RC DAILY PRN 06/07/16 [History] Calcium Carbonate/Vitamin D3 [Calcium 600 + Vit D 400 Softgl] 1 tab PO BID 06/07 [History] Carboxymethylcellulose Sodium [Refresh Tears] 1 drop EYEBOTH Q6HR PRN 06/07/16 [ History] DULoxetine HCl [Cymbalta] 60 mg PO BEDTIME 06/07/16 [History] Gabapentin [Neurontin] 300 mg PO BEDTIME 06/07/16 [History] Insulin Aspart [NovoLOG] 4 units SQ TIDAC 06/07/16 [History] Insulin Glarg,Human.Rec.Analog [Lantus] 7 units SQ BID 06/07/16 [History] Lactulose 30 ml PO Q8HR PRN 06/07/16 [History] Levothyroxine Sodium [Levoxyl] 50 mcg PO DAILY 06/07/16 [History] Liothyronine Sodium 1 tab PO DAILY 06/07/16 [History] Losartan Potassium 2 tab PO DAILY 06/07/16 [History] Melatonin 3 mg PO BEDTIME 06/07/16 [History] Metoprolol Tartrate 12.5 mg PO BID 06/07/16 [History] Multivit-Min/Iron Fum/Folic AC [Zixsf-Rvglwbf-Pizaticm Tablet] 1 tab PO DAILY [History] Nitroglycerin [Nitrostat] 1 tab SL ASDIRECTED PRN 06/07/16 [History] Non-Formulary Medication [NF Drug] 50 mg PO DAILY 06/07/16 [History] Progesterone,Micronized [Prometrium] 3 cap PO BEDTIME 06/07/16 [History] Sennosides/Docusate Sodium [Senna S Tablet] 2 tab PO BID 06/07/16 [History] Sodium Chloride [Saline Nasal [place]] 2 spray DARNELL BEDTIME 06/07/16 [History] atorvaSTATin Calcium [Atorvastatin Calcium] 10 mg PO QPM 06/07/16 [History] Cholecalciferol (Vitamin D3) [Vitamin D3] 2,000 unit PO DAILY 06/18/16 [History] Glucagon,Human Recombinant [Glucagon Emergency Kit] 1 mg IJ DAILY PRN 06/18/16 [ History] traMADol HCl [Ultram] 50 mg PO BID PRN 06/18/16 [History] Amiodarone [Cordarone] 100 mg PO DAILY #30 tablet 06/22/16 [Rx] Levofloxacin [Levaquin] 500 mg PO Q24H #7 tablet 06/22/16 [Rx] amLODIPine [Norvasc] 2.5 mg PO BEDTIME #30 tablet 06/22/16 [Rx] Forms: ED Department Discharge Referrals: Sheets-Jacqueline Torre MD [Primary Care Provider] - - Discharge Summary/Plan Comment DC Time >30 min.: No - Patient Data Vitals - Most Recent: Last Vital Signs Temp 99.2 F 06/22/16 08:00 Pulse 65 06/22/16 08:00 Resp 18 06/22/16 08:00 BP 175/67 H 06/22/16 09:59 Pulse Ox 94 L 06/22/16 08:00 Weight - Most Recent: 158 lb 0.014 oz I&O - Last 24 hours: Intake & Output 06/22/16 06/22/16 06/22/16 06:59 14:59 22:59 Intake Total 1200 820 Output Total 400 400 Balance 800 420 Lab Results - Last 24 hrs: Laboratory Results - last 24 hr 06/21/16 06/21/16 06/22/16 Range/Units 11:35 17:04 06:40 WBC (4.0-10.2) K/uL RBC (3.77-5.09) M/uL Hgb (11.7-15.5) g/dL Hct (34.0-46.0) % MCV (84.0-98.0) fL MCH (28.2-33.3) pg MCHC (31.7-36.0) g/dL RDW (11.2-14.1) % Plt Count (150-350) K/uL Neut % (Auto) (45.0-80.0) % Lymph % (Auto) (10.0-50.0) % Valley % (Auto) (2.0-14.0) % Eos % (Auto) (0.0-5.0) % Baso % (Auto) (0.0-2.0) % Neut # (Auto) (1.40-7.00) K/uL Lymph # (Auto) (0.50-3.50) K/uL Valley # (Auto) (0.00-1.00) K/uL Eos # (Auto) (0.00-0.50) K/uL Baso # (Auto) (0.00-0.20) K/uL VBG pH (7.31-7.41) VBG pCO2 (41-51) mmHG VBG pO2 mmHG VBG HCO3 (23-28) mmol/L VBG Total CO2 mmol/L VBG O2 Saturation % VBG Base Excess ((-2)-3) mmol/L O2 Delivery Device Oxygen Flow Rate L/min Sodium 135 L (136-145) mmol/L Potassium 4.3 (3.5-5.1) mmol/L Chloride 100 (98-107) mmol/L Carbon Dioxide 26.8 (21.0-32.0) mmol/L BUN 19 H (7-18) mg/dL Creatinine 0.80 (0.51-1.17) mg/dL Est Cr Clr Drug Dosing 77.03 mL/min Estimated GFR (MDRD) > 60 mL/min Glucose 294 H* (74-106) mg/dL POC Glucose 187 H 192 H (65-110) mg/dl Calcium 8.3 L (8.5-10.1) mg/dL Total Bilirubin 0.5 (0.2-1.0) mg/dL AST 24 (15-37) U/L ALT 57 (12-78) U/L Alkaline Phosphatase 202 H (46-116) IU/L C-Reactive Protein 4.6 H (<=0.9) mg/dL Total Protein 6.0 L (6.4-8.2) g/dL Albumin 2.3 L (3.4-5.0) g/dL 06/22/16 06/22/16 06/22/16 Range/Units 06:40 06:40 07:33 WBC 7.6 (4.0-10.2) K/uL RBC 4.18 (3.77-5.09) M/uL Hgb 11.5 L (11.7-15.5) g/dL Hct 35.5 (34.0-46.0) % MCV 84.9 (84.0-98.0) fL MCH 27.5 L (28.2-33.3) pg MCHC 32.4 (31.7-36.0) g/dL RDW 14.0 (11.2-14.1) % Plt Count 465 H (150-350) K/uL Neut % (Auto) 62.3 (45.0-80.0) % Lymph % (Auto) 20.0 (10.0-50.0) % Valley % (Auto) 9.2 (2.0-14.0) % Eos % (Auto) 7.2 H (0.0-5.0) % Baso % (Auto) 1.3 (0.0-2.0) % Neut # (Auto) 4.76 (1.40-7.00) K/uL Lymph # (Auto) 1.53 (0.50-3.50) K/uL Valley # (Auto) 0.70 (0.00-1.00) K/uL Eos # (Auto) 0.55 H (0.00-0.50) K/uL Baso # (Auto) 0.10 (0.00-0.20) K/uL VBG pH 7.35 (7.31-7.41) VBG pCO2 48 (41-51) mmHG VBG pO2 45 mmHG VBG HCO3 26 (23-28) mmol/L VBG Total CO2 28 mmol/L VBG O2 Saturation 78 % VBG Base Excess 1 ((-2)-3) mmol/L O2 Delivery Device Room air Oxygen Flow Rate 0 L/min Sodium (136-145) mmol/L Potassium (3.5-5.1) mmol/L Chloride (98-107) mmol/L Carbon Dioxide (21.0-32.0) mmol/L BUN (7-18) mg/dL Creatinine (0.51-1.17) mg/dL Est Cr Clr Drug Dosing mL/min Estimated GFR (MDRD) mL/min Glucose (74-106) mg/dL POC Glucose 261 H* (65-110) mg/dl Calcium (8.5-10.1) mg/dL Total Bilirubin (0.2-1.0) mg/dL AST (15-37) U/L ALT (12-78) U/L Alkaline Phosphatase (46-116) IU/L C-Reactive Protein (<=0.9) mg/dL Total Protein (6.4-8.2) g/dL Albumin (3.4-5.0) g/dL 06/22/16 Range/Units 11:19 WBC (4.0-10.2) K/uL RBC (3.77-5.09) M/uL Hgb (11.7-15.5) g/dL Hct (34.0-46.0) % MCV (84.0-98.0) fL MCH (28.2-33.3) pg MCHC (31.7-36.0) g/dL RDW (11.2-14.1) % Plt Count (150-350) K/uL Neut % (Auto) (45.0-80.0) % Lymph % (Auto) (10.0-50.0) % Valley % (Auto) (2.0-14.0) % Eos % (Auto) (0.0-5.0) % Baso % (Auto) (0.0-2.0) % Neut # (Auto) (1.40-7.00) K/uL Lymph # (Auto) (0.50-3.50) K/uL Valley # (Auto) (0.00-1.00) K/uL Eos # (Auto) (0.00-0.50) K/uL Baso # (Auto) (0.00-0.20) K/uL VBG pH (7.31-7.41) VBG pCO2 (41-51) mmHG VBG pO2 mmHG VBG HCO3 (23-28) mmol/L VBG Total CO2 mmol/L VBG O2 Saturation % VBG Base Excess ((-2)-3) mmol/L O2 Delivery Device Oxygen Flow Rate L/min Sodium (136-145) mmol/L Potassium (3.5-5.1) mmol/L Chloride (98-107) mmol/L Carbon Dioxide (21.0-32.0) mmol/L BUN (7-18) mg/dL Creatinine (0.51-1.17) mg/dL Est Cr Clr Drug Dosing mL/min Estimated GFR (MDRD) mL/min Glucose (74-106) mg/dL POC Glucose 347 H* (65-110) mg/dl Calcium (8.5-10.1) mg/dL Total Bilirubin (0.2-1.0) mg/dL AST (15-37) U/L ALT (12-78) U/L Alkaline Phosphatase (46-116) IU/L C-Reactive Protein (<=0.9) mg/dL Total Protein (6.4-8.2) g/dL Albumin (3.4-5.0) g/dL Med Orders - Current: Current Medications Acetaminophen (Tylenol) 650 mg PO Q4HR PRN PRN Reason: Pain Last Admin: 06/19/16 10:08 Dose: 650 mg Amiodarone HCl (Cordarone) 100 mg PO DAILY EDER Last Admin: 06/22/16 07:38 Dose: 100 mg Amlodipine Besylate (Norvasc) 2.5 mg PO BEDTIME DEER Artificial Tears (Liquitears 1.4% Ophth Soln) 0 ml EYEBOTH Q6HR PRN PRN Reason: Dry Eyes Bisacodyl (Dulcolax) 10 mg RECTAL DAILY PRN PRN Reason: Constipation Duloxetine HCl (Cymbalta) 60 mg PO BEDTIME [facility] Last Admin: 06/21/16 19:42 Dose: 60 mg Ferrous Sulfate (Slow Release Iron) 160 mg PO DAILY@1800 [facility] Last Admin: 06/21/16 18:20 Dose: 160 mg Gabapentin (Neurontin) 300 mg PO BEDTIME [facility] Last Admin: 06/21/16 19:42 Dose: 300 mg Levofloxacin/Dextrose 500 mg/ (Premix) 100 mls @ 100 mls/hr IV Q24H [facility] Last Admin: 06/22/16 10:01 Dose: 100 mls/hr Insulin Aspart (Novolog) 4 unit SUBCUT TID@0800,1200,1800 [facility] PRN Reason: Protocol Last Admin: 06/22/16 11:20 Dose: 8 units Insulin Detemir (Levemir) 7 unit SUBCUT Q12HR [facility] Lactulose (Cephulac) 20 gm PO Q8HR PRN PRN Reason: Constipation Last Admin: 06/22/16 11:30 Dose: 20 gm Levothyroxine Sodium (Synthroid) 50 mcg PO DAILY [facility] Last Admin: 06/22/16 07:35 Dose: 50 mcg Losartan Potassium (Cozaar) 50 mg PO DAILY [facility] Last Admin: 06/22/16 07:37 Dose: 50 mg Melatonin (Melatonin) 3 mg PO BEDTIME [facility] Last Admin: 06/21/16 19:42 Dose: 3 mg Metoprolol Tartrate (Lopressor) 12.5 mg PO Q12HR [facility] Last Admin: 06/22/16 07:37 Dose: 12.5 mg Multivitamins/Minerals/Vitamin C (Tab-A-Lilo) 1 tab PO DAILY@1200 [facility] Last Admin: 06/22/16 11:19 Dose: 1 tab Nitroglycerin (Nitrostat) 0.4 mg SL ASDIRECTED PRN PRN Reason: Chest Pain Liothyronine Sodium (5mcg Tablet) 1 tab PO DAILY [facility] Last Admin: 06/22/16 07:40 Dose: 1 tab Progesterone, Micronized 100mg Capsules 3 cap PO BEDTIME [facility] Last Admin: 06/21/16 19:43 Dose: 3 cap Senna/Docusate Sodium (Senna Plus) 2 tab PO BID [facility] Last Admin: 06/22/16 07:39 Dose: 2 tab Sodium Chloride (Dickey Nasal [place]) 0 ml NASBOTH BEDTIME [facility] Last Admin: 06/21/16 19:45 Dose: 2 spray Sodium Chloride (Saline Flush) 10 ml FLUSH Q12HR [facility] Last Admin: 06/22/16 07:44 Dose: 10 ml Sodium Chloride (Saline Flush) 10 ml FLUSH ASDIRECTED PRN PRN Reason: Keep Vein Open Last Admin: 06/21/16 18:24 Dose: 10 ml Tramadol HCl (Ultram) 50 mg PO BID@0800,2000 [facility] Last Admin: 06/22/16 07:35 Dose: 50 mg Discontinued Medications Amiodarone HCl (Cordarone) 200 mg PO DAILY [facility] Last Admin: 06/21/16 10:38 Dose: 200 mg Amlodipine Besylate (Norvasc) 2.5 mg PO ONETIME ONE Stop: 06/22/16 09:01 Last Admin: 06/22/16 09:59 Dose: 2.5 mg Atorvastatin Calcium (Lipitor) 10 mg PO QPM [facility] Calcium Carbonate (Oystcal-D 625 Mg-125 Units) 1 tab PO BID [facility] Last Admin: 06/19/16 07:17 Dose: 1 tab Cholecalciferol (Vitamin D3) 2,000 units PO DAILY [facility] Last Admin: 06/19/16 11:00 Dose: 2,000 units Sodium Chloride (Normal Saline) 1,000 mls @ 500 mls/hr IV .BOLUS ONE Stop: 06/18/16 23:55 Last Admin: 06/18/16 22:50 Dose: 500 mls/hr Levofloxacin/Dextrose 500 mg/ (Premix) 100 mls @ 100 mls/hr IV Q24H [facility] Last Admin: 06/20/16 23:22 Dose: 100 mls/hr Sodium Chloride (Normal Saline) 1,000 mls @ 75 mls/hr IV ASDIRECTED [facility] Last Admin: 06/19/16 22:16 Dose: 75 mls/hr Levofloxacin/Dextrose 500 mg/ (Premix) 100 mls @ 100 mls/hr IV DAILY@1800 [facility] Last Infusion: 06/21/16 19:30 Dose: Infused Insulin Aspart (Novolog) 4 unit SUBCUT TIDAC [facility] Last Admin: 06/21/16 10:37 Dose: Not Given Insulin Aspart (Novolog) 4 unit SUBCUT ONETIME ONE PRN Reason: Protocol Stop: 06/21/16 18:01 Last Admin: 06/21/16 18:19 Dose: 4 units Insulin Aspart (Novolog) 6 unit SUBCUT ONETIME ONE PRN Reason: Protocol Stop: 06/22/16 09:01 Last Admin: 06/22/16 09:59 Dose: 6 units Insulin Detemir (Levemir) 7 unit SUBCUT BID@0800,2000 [facility] Last Admin: 06/21/16 10:41 Dose: 7 unit Insulin Detemir (Levemir) 7 unit SUBCUT DAILY [facility] Last Admin: 06/22/16 07:41 Dose: 7 unit Iopamidol (Isovue-300 (61%)) 100 ml IVPUSH ONETIME ONE Stop: 06/21/16 08:19 Last Admin: 06/21/16 09:22 Dose: 100 ml Magnesium Oxide (Magnesium Oxide) 400 mg PO ONETIME ONE Stop: 06/21/16 12:01 Last Admin: 06/21/16 12:58 Dose: 400 mg Metoprolol Tartrate (Lopressor) 12.5 mg PO BID [facility] Last Admin: 06/21/16 10:39 Dose: 12.5 mg Multivitamins/Minerals/Vitamin C (Tab-A-Lilo) 1 tab PO DAILY [facility] Last Admin: 06/21/16 10:40 Dose: 1 tab *Q Meaningful Use (DIS) - VTE *Q VTE Criteria *Q: - Stroke *Q Stroke Criteria *Q: - AMI *Q AMI Criteria *Q:
[2016-06-22] MEDS ORDERED: amLODIPine 5 MG Tab PO SCH (20:00)
== END 2016-06-22 16:35 | DRG 690 ==
LOC: LL.ED 21:09 → LL.MS 23:35
PROVIDERS: ADMIT Emergency Medicine; ATTEND Family Medicine
PROC: 30233N1 Transfusion of Nonautologous Red Blood Cells into Peripheral Vein, Percutaneous Approach (ICD-10-PCS; principal; 2016-06-19)
DX: N30.00 Acute cystitis without hematuria (principal); E87.1 Hypo-osmolality and hyponatremia; J90 Pleural effusion, not elsewhere classified; S22.43XA Multiple fractures of ribs, bilateral, initial encounter for closed fracture; J98.11 Atelectasis; R50.9 Fever, unspecified; B96.20 Unspecified Escherichia coli [E. coli] as the cause of diseases classified elsewhere; E11.9 Type 2 diabetes mellitus without complications; Z79.4 Long term (current) use of insulin; R41.82 Altered mental status, unspecified; W19.XXXA Unspecified fall, initial encounter; S82.201D Unspecified fracture of shaft of right tibia, subsequent encounter for closed fracture with routine healing; Z79.82 Long term (current) use of aspirin; Z91.018 Allergy to other foods; Z88.0 Allergy status to penicillin; D64.9 Anemia, unspecified
CPT/HCPCS: 36415; 71010; 80053; 81001; 85025; 87086; 87088; 87186; 96360; 99285; J7030; 36430; 70450; 71020; 71260; 73590-RT; 80171; 80299; 82140; 82272; 82306; 82607; 82728; 82746; 82803; 82962; 83540; 83550; 83735; 83930; 83935; 84300; 84443; 84480; 86140; 86850; 86900; 86901; 86920; 86922; 93005; 97110-GO; 97110-GP; 97140-GP; 97161-GP; 97165-GO; A9270-GY; J1815-GY; J1956; J7050; P9016; Q9967